=== PATIENT | male | born 1965 | race Caucasian/White ===

== ENCOUNTER 2021-08-18 13:48 | Inpatient (IN) | payer OTHER, SELFPAY ==
[2021-08-18] VITALS (32 sets, daily range): BP systolic 74–114; BP diastolic 46–77; PULSE 75–135; RESP 13–27; TEMP 36.4; O2SAT 88–100; BMI 25.9
[2021-08-18 14:25] LABS: Glucose Point of Care 154 mg/dL (70-110)
--- NOTE | 2021-08-18 14:29 | W.ED.GENADLT ---
HPI - General Adult General: Chief complaint: ER Hold Stated complaint: UNEXPLAINED WEIGHT LOSS,SINUS INFECTION,FEELS ILL Time Seen by Provider: 08/18/21 14:31 History of Present Illness: HPI narrative: 56-year-old male presents emergency room complaining of sinus infection he says for last 3 weeks he has had significant weight loss. He has been on Bactrim DS for the this. He states he generally not felt well had some vague abdominal discomfort denies any hematochezia melena hematemesis but has had some vomiting. Denies dysuria urgency or frequency has been mildly short of breath at times as well. Patient is also noticed decrease in urine output as well as unexplained weight loss. Patient also complaining of some shortness of breath and nonproductive cough. Onset (ago): week(s) Location: head, chest and abdomen Radiation: non-radiation Severity: mild Quality: aching Pain Consistency: constant Relieving factors: none Exacerbating factors: other (Exertion) Associated symptoms: Reports cough, decreased appetite, dyspnea, malaise, nausea and palpitations; Deny chest pain, confusion, diaphoresis, fevers/chills, headache(s), rash, seizures, short of breath, syncope, vomiting or weakness Treatments prior to arrival: none Review of Systems Const: Reports: malaise; Denies: diaphoresis ENMT: Denies: throat pain, ear or mastoid pain, nasal discharge or nasal congestion Card: Reports: palpitations; Denies: chest pain or syncope Resp: Reports: dyspnea GI: Reports: nausea; Denies: vomiting : Denies: flank pain, dysuria, urinary frequency or urinary urgency Skin/Breast: Denies: rash Neuro: Denies: headache(s) or confusion PFSH ED PFSH: Medical History (Updated 08/28/21 @ 13:38 by Haim Espinoza DO) HTN (hypertension) Surgical History (Updated 08/18/21 @ 20:41 by Jose De Jesus Miner MD) History of back surgery Family History Other Cancer Social History Smoking and tobacco status: former smoker Alcohol intake: current Alcohol intake frequency: holidays/special occasions only Lives independently: Yes Household members: none Marital status: Single Current occupational status: employed Physical Exam Const: COMMON NORMALS: no acute distress GENERAL APPEARANCE: cooperative and comfortable ORIENTATION/CONSCIOUSNESS: Yes awake, Yes oriented to person, Yes oriented to place and Yes oriented to time HENMT: COMMON NORMALS: normocephalic, atraumatic, hearing grossly normal bilaterally, external ears normal, EAC's normal, TM's normal bilaterally, Normal nasal mucous membranes and turbinates present, moist oral mucous membranes and oropharynx normal HEAD & SCALP: normocephalic and atraumatic NOSE: Normal nasal mucous membranes and turbinates present EXTERNAL EAR: Yes external ears normal EXTERNAL AUDITORY CANAL: EAC's normal TYMPANIC MEMBRANE: TM's normal bilaterally Eye: COMMON NORMALS: Equal, round and reactive pupils present, EOMs intact bilaterally, conjunctivae normal and no scleral icterus CONJUNCTIVA: Yes conjunctivae normal PUPIL: Yes Equal, round and reactive pupils present Neck/C-Spine: COMMON NORMALS: full ROM, no lymphadenopathy, supple and no JVD Lymph: LYMPHATIC: no lymphadenopathy noted and no lymphedema noted Resp: COMMON NORMALS: normal respiratory effort, No retractions, No use of accessory muscles and clear to auscultation bilaterally AUSCULTATION: clear to auscultation bilaterally Cardio: COMMON NORMALS: no JVD, regular rate, regular rhythm and No murmurs present (Cardio) RATE: regular rate RHYTHM: regular rhythm GI: COMMON NORMALS: No hepatosplenomegaly present AUSCULTATION: Yes normoactive bowel sounds PALPATION: Yes Tenderness to palpation present (GI) Details: RUQ, No Guarding due to palpation present (GI) and Yes No hepatosplenomegaly present Extremity: COMMON NORMALS: normal to inspection, capillary refill normal, no clubbing, cyanosis or edema, no calf tenderness and no pedal edema Neuro: SENSORIUM/ORIENTATION: Yes oriented to person, Yes oriented to place and Yes oriented to time Skin: COMMON NORMALS: no rashes or lesions noted GENERAL SKIN EXAM: no rashes or lesions noted Course Vital Signs: Vital signs: Vital Signs Temperature 97.4 F L 08/27/21 15:27 Pulse Rate 88 08/27/21 15:27 Respiratory Rate 16 08/27/21 15:27 Blood Pressure 143/96 08/27/21 15:27 Pulse Oximetry 94 08/27/21 15:27 MDM - General Adult MDM Narrative: Medical decision making narrative: Labs and imaging reviewed on the patient. He is mildly hypoxic and is requiring oxygen. He does seem to have an atypical pneumonia on chest x-ray. Additionally he has markedly elevated LFTs. Acute hepatitis panel shows acute hepatitis A. Discussed Dr. Miner will go ahead and admit for atypical pneumonia hepatitis A. Orders written. Lab Data: Labs: Lab Results 08/18/21 08/18/21 08/18/21 14:21 14:40 14:40 WBC 8.7 10^3/uL 10^3/ uL (4.0-10.0) RBC 5.42 10^6/uL H 10 ^6/uL (4.1-5.3) Hgb 15.9 g/dL g/dL (11.7-16.6) Hct 48.4 % % (42.0-52.0) MCV 89.3 fl fl (80-94) MCH 29.3 pg pg (28.0-34.0) MCHC 32.9 g/dL g/dL (30.0-36.0) RDW 12.4 % % (12.1-15.1) Plt Count 404 10^3/cmm H 10 ^3/cmm (130-400) MPV 10.1 fL fL (7.4-10.4) Neut % (Auto) 67.1 % % Lymph % (Auto) 19.4 % % [place] % (Auto) 9.3 % % Eos % (Auto) 3.0 % % Baso % (Auto) 0.5 % % Neut # (Auto) 5.86 10^3/uL 10^3 /uL (1.8-7.7) Lymph # (Auto) 1.7 10^3/uL 10^3/ uL (0.8-4.8) [place] # (Auto) 0.8 10^3/uL 10^3/ uL (0.2-0.9) Eos # (Auto) 0.3 10^3/uL 10^3/ uL (0.0-0.8) Baso # (Auto) 0.0 10^3/uL 10^3/ uL (0.0-0.1) Nucleated RBC % (a uto) 0 % % Nucleated RBCs # 0.0 /100WBC /100W BC PT INR APTT D-Dimer Specimen Type Sample Site ABG pH ABG pCO2 ABG pO2 ABG HCO3 ABG O2 Saturation ABG Base Excess Igor Test A-a O2 Gradient Hematocrit Hgb O2 Saturation Carboxyhemoglobin Methemoglobin Total Hemoglobin Ionized Calcium O2 Delivery Device O2 Liters/Min FiO2 Sleeve Setter Safety Stitch ID Sodium 140 mmol/L mmol/L (136-145) Potassium 3.9 mmol/L mmol/L (3.5-5.1) Chloride 103 mmol/L mmol/L (98-107) Carbon Dioxide 23 mmol/L mmol/L (22-29) Anion Gap 17.9 (5-19) BUN 68 mg/dL H mg/dL (6-20) Creatinine 3.0 mg/dL H mg/dL (0.7-1.2) GFR Calculation 21.9 mL/min L mL/ min (90-130) Glucose 117 mg/dL H mg/dL (65-115) POC Glucose 154 mg/dL H mg/dL (70-110) Calculated Osmolal ity 311 mOsm/kg H mOs m/kg (285-295) Lactate Calcium 9.3 mg/dL mg/dL (8.5-10.5) Total Bilirubin 1.0 mg/dL mg/dL (0.15-1.2) AST 55 U/L H U/L (0-40) ALT 63 U/L H U/L (0-41) Alkaline Phosphata se 62 IU/L IU/L (40-130) Total Protein 7.1 g/dL g/dL (6.6-8.7) Albumin 3.7 g/dL g/dL (3.5-5.2) Globulin 3.4 g/dL g/dL (1.3-4.6) TSH Free T4 Nasal/Oral COVID-1 9 PCR Hepatitis A IgM Ab Hep Bs Antigen Hep B Core IgM Ab Hepatitis C Antibo dy HIV 1&2 Ab & HIV 1 Ag HIV 1&2 Antibody SARS-CoV-2 Ag (Rap id) 08/18/21 08/18/21 08/18/21 14:40 14:40 14:40 WBC RBC Hgb Hct MCV MCH MCHC RDW Plt Count MPV Neut % (Auto) Lymph % (Auto) [place] % (Auto) Eos % (Auto) Baso % (Auto) Neut # (Auto) Lymph # (Auto) [place] # (Auto) Eos # (Auto) Baso # (Auto) Nucleated RBC % (a uto) Nucleated RBCs # PT 16.20 SECONDS H S ECONDS (12.1-14.9) INR 1.27 H (0.8-1.2) APTT 28.4 SECONDS SECO NDS (23.9-36.7) D-Dimer Specimen Type Sample Site ABG pH ABG pCO2 ABG pO2 ABG HCO3 ABG O2 Saturation ABG Base Excess Igor Test A-a O2 Gradient Hematocrit Hgb O2 Saturation Carboxyhemoglobin Methemoglobin Total Hemoglobin Ionized Calcium O2 Delivery Device O2 Liters/Min FiO2 Sleeve Setter Safety Stitch ID Sodium Potassium Chloride Carbon Dioxide Anion Gap BUN Creatinine GFR Calculation Glucose POC Glucose Calculated Osmolal ity Lactate 2.5 mmol/L H mmol /L (0.5-2.2) Calcium Total Bilirubin AST ALT Alkaline Phosphata se Total Protein Albumin Globulin TSH Free T4 Nasal/Oral COVID-1 9 PCR Hepatitis A IgM Ab Reactive H (Nonreactive) Hep Bs Antigen Non-reactive (Nonreactive) Hep B Core IgM Ab Non-reactive (Nonreactive) Hepatitis C Antibo dy Non-reactive (Nonreactive) HIV 1&2 Ab & HIV 1 Ag HIV 1&2 Antibody SARS-CoV-2 Ag (Rap id) 08/18/21 08/18/21 08/18/21 14:40 14:40 14:40 WBC RBC Hgb Hct MCV MCH MCHC RDW Plt Count MPV Neut % (Auto) Lymph % (Auto) [place] % (Auto) Eos % (Auto) Baso % (Auto) Neut # (Auto) Lymph # (Auto) [place] # (Auto) Eos # (Auto) Baso # (Auto) Nucleated RBC % (a uto) Nucleated RBCs # PT INR APTT D-Dimer 1.54 ug/mIFEU H u g/mIFEU (0-0.59) Specimen Type Sample Site ABG pH ABG pCO2 ABG pO2 ABG HCO3 ABG O2 Saturation ABG Base Excess Igor Test A-a O2 Gradient Hematocrit Hgb O2 Saturation Carboxyhemoglobin Methemoglobin Total Hemoglobin Ionized Calcium O2 Delivery Device O2 Liters/Min FiO2 Sleeve Setter Safety Stitch ID Sodium Potassium Chloride Carbon Dioxide Anion Gap BUN Creatinine GFR Calculation Glucose POC Glucose Calculated Osmolal ity Lactate Calcium Total Bilirubin AST ALT Alkaline Phosphata se Total Protein Albumin Globulin TSH 1.70 uIU/mL uIU/m L (0.27-4.20) Free T4 1.05 ng/dL ng/dL (0.82-1.77) Nasal/Oral COVID-1 9 PCR Hepatitis A IgM Ab Hep Bs Antigen Hep B Core IgM Ab Hepatitis C Antibo dy HIV 1&2 Ab & HIV 1 Ag Non-reactive (Non-Reactiv) HIV 1&2 Antibody Non-reactive (Non-Reactiv) SARS-CoV-2 Ag (Rap id) 08/18/21 08/18/21 08/18/21 15:01 15:53 17:14 WBC RBC Hgb Hct MCV MCH MCHC RDW Plt Count MPV Neut % (Auto) Lymph % (Auto) [place] % (Auto) Eos % (Auto) Baso % (Auto) Neut # (Auto) Lymph # (Auto) [place] # (Auto) Eos # (Auto) Baso # (Auto) Nucleated RBC % (a uto) Nucleated RBCs # PT INR APTT D-Dimer Specimen Type Arterial Sample Site Brachial, left ABG pH 7.44 (7.35-7.45) ABG pCO2 30.2 mmHg L mmHg (35-45) ABG pO2 68.0 mmHg L mmHg (80.0-100.0) ABG HCO3 20.3 mmol/L L mmo l/L (22-26) ABG O2 Saturation 92.5 ABG Base Excess -2.8 mmol/L L mmo l/L (-2.0-2.0) Igor Test N/a A-a O2 Gradient 23.1 mmHg H mmHg (5-10) Hematocrit 46.0 % % (42-52) Hgb O2 Saturation 90.8 % L % (95-100) Carboxyhemoglobin 0.9 %THgb %THgb (0.4-20.1) Methemoglobin 0.9 % % (0.4-1.5) Total Hemoglobin 15.0 g/dL g/dL (14-18) Ionized Calcium 1.2 mmol/L mmol/L (1.1-1.4) O2 Delivery Device Nc O2 Liters/Min 5.0 % % FiO2 40.0 % % Sleeve Setter Safety Stitch ID Ed Sodium 142.0 mmol/L mmol /L (131-143) Potassium 3.7 mmol/L mmol/L (3.5-5.0) Chloride Carbon Dioxide Anion Gap BUN Creatinine GFR Calculation Glucose 96.0 mg/dL mg/dL (70-115) POC Glucose Calculated Osmolal ity Lactate Calcium Total Bilirubin AST ALT Alkaline Phosphata se Total Protein Albumin Globulin TSH Free T4 Nasal/Oral COVID-1 9 PCR Detected H Hepatitis A IgM Ab Hep Bs Antigen Hep B Core IgM Ab Hepatitis C Antibo dy HIV 1&2 Ab & HIV 1 Ag HIV 1&2 Antibody SARS-CoV-2 Ag (Rap id) Negative (Negative) Discharge Plan Discharge Patient Disposition: Admitted As Inpatient Admit Provider: Jose De Jesus Miner Clinical Impression: Pneumonia, Acute hepatitis A, Acute kidney injury Condition: Stable Discharge Diet: Cardiac Discharge Activity: Increase activity as tolerated Coding Level of Care Code ED Range Aide for Haley Hedrick
[2021-08-18] MEDS: sodium chloride 0.9% 1,000 ML 999 ML IV ×4 (14:58→17:51)
[2021-08-18 15:09] LABS: Basophils % 0.5 %; Eosinophils # 0.3 10^3/uL (0.0-0.8); Hematocrit 48.4 % (42.0-52.0); Hemoglobin 15.9 g/dL (11.7-16.6); Lymphocytes # 1.7 10^3/uL (0.8-4.8); Lymphocytes % 19.4 %; Mean Corpuscular HGB Conc 32.9 g/dL (30.0-36.0); Mean Corpuscular Hemoglobin 29.3 pg (28.0-34.0); Mean Corpuscular Volume 89.3 fl (80-94); Mean Platelet Volume 10.1 fL (7.4-10.4); Monocytes # 0.8 10^3/uL (0.2-0.9); Monocytes % 9.3 %; Neutrophils # 5.86 10^3/uL (1.8-7.7); Neutrophils % 67.1 %; Nucleated Red Blood Cells % 0 %; Platelet Count 404 10^3/cmm (130-400); Red Blood Count 5.42 10^6/uL (4.1-5.3); Red Cell Distribution Width 12.4 % (12.1-15.1); White Blood Count 8.7 10^3/uL (4.0-10.0)
[2021-08-18 15:11] LABS: INR 1.27 (0.8-1.2)
[2021-08-18 15:12] LABS: Partial Thromboplastin Time 28.4 SECONDS (23.9-36.7)
[2021-08-18 15:16] LABS: Alanine Aminotransferase 63 U/L (0-41); Albumin Level 3.7 g/dL (3.5-5.2); Alkaline Phosphatase 62 IU/L (40-130); Anion Gap 17.9 (5-19); Aspartate Amino Transferase 55 U/L (0-40); Blood Urea Nitrogen 68 mg/dL (6-20); Calcium 9.3 mg/dL (8.5-10.5); Carbon Dioxide 23 mmol/L (22-29); Chloride 103 mmol/L (98-107); Globulin 3.4 g/dL (1.3-4.6); Glomerular Filtration Rate 21.9 mL/min (90-130); Glucose 117 mg/dL (65-115); Osmolality Calculated 311 mOsm/kg (285-295); Potassium 3.9 mmol/L (3.5-5.1); Sodium 140 mmol/L (136-145); Total Protein 7.1 g/dL (6.6-8.7)
[2021-08-18 15:24] LABS: Lactate (Lactic Acid level) 2.5 mmol/L (0.5-2.2)
[2021-08-18 15:37] LABS: SARS Covid-2 Antigen Negative (Negative)
--- NOTE | 2021-08-18 15:40 | XR_ITS ---
WS: [id number] Exam: XR chest 1V portable [id number] Date/Time of Exam: 08/18/2021 3:40 PM Reason For Exam: dyspnea/cough No prior exams. Patchy groundglass infiltrates are noted in the bilateral lateral lung zones. Heart size is normal. T he mediastinum is not widened. The lungs are fully expanded. No pleural effusions. Regional bony stru ctures are intact. XR/XR chest 1V portable [id number] IMPRESSION: 1. Patchy groundglass infiltrates noted in both lateral lung zones most marked on the right. There are no prior exams to determine the chronicity of this find ing. This could represent chronic change or active pneumonia. This pattern can be seen with Covid pneumonia.
--- NOTE | 2021-08-18 15:40 | CTR_ITS ---
PROCEDURE INFORMATION: Exam: CT Abdomen And Pelvis Without Contrast Exam date and time: 08/18/2021 3:40 PM Age: 56 years old Clinical indication: Weakness. Rapid weight loss. Abdominal pain. TECHNIQUE: Imaging protocol: Computed tomography of the abdomen and pelvis without contrast. Radiation optimization: All CT scans at this facility use at least one of these dose optimization techniques: automated exposure control; mA and/or kV adjustment per patient size (includes targeted exams where dose is matched to clinical indication); or iterative reconstruction. COMPARISON: CR XR chest 1V portable [id number] 08/18/2021 3:45 PM RADIATION DOSE METRICS: Total DLP (mGy-cm): 1581.96 FINDINGS: Lungs: There are patchy ground-glass opacities at the lung bases. These findings are commonly reported imaging features of COVID 19 pneumonia. Other processes such as influenza pneumonia and organizing pneumonia (as can be seen with drug toxicity and connective tissue disease) can cause a similar imaging pattern. Heart: No pericardial effusion. No hiatal hernia. Liver: The liver is mildly enlarged measuring 17.3 cm. A simple hepatic cyst measures 0.6 cm. Gallbladder and bile ducts: Possible gallbladder sludge. No definite stone. Pancreas: The pancreas is unremarkable. Spleen: The spleen is unremarkable. Adrenal glands: The adrenal glands are unremarkable. Kidneys and ureters: Small cyst on the left measuring 1.4 cm with a tiny peripheral calcification. There is a dense left renal lesion measuring 0.9 cm. No hydronephrosis. Stomach and bowel: The stomach and small bowel are unremarkable.. The colon is unremarkable. Appendix: The appendix is unremarkable. Intraperitoneal space: No free intraperitoneal air is seen. Vasculature: No abdominal aortic aneurysm. Lymph nodes: A periportal lymph node measures 1.7 x 1.9 cm. Urinary bladder: The bladder is unremarkable. Reproductive: The prostate measures 3.4 x 3.5 cm. Bones/joints: No acute fracture is seen. Soft tissues: Small fat containing umbilical hernia. CT/CT abdomen pelvis wo con [id number] IMPRESSION: 1. There are patchy ground-glass opacities at the lung bases. These findings are commonly reported imaging features of COVID 19 pneumonia. Other processes such as influenza pneumonia and organizing pneumonia (as can be seen with drug toxicity and connective tissue disease) can cause a similar imaging pattern. 2. Small dense left renal lesion likely representing a hemorrhagic cyst. Probable simple cyst in the left kidney with tiny peripheral calcification. Recommend nonemergent ultrasound to exclude a solid renal lesion. 3. Possible gallbladder sludge. No definite gallbladder stone. No gallbladder wall thickening is appreciated. 4. Mild hepatomegaly with periportal lymphadenopathy. COMMENTS: Consistent with the [employer]'s Incidental Findings Committee white paper (J Am Anthony Radiol 2018): Any incidental renal lesion less than 1 cm or classified as too small to characterize, or any incidental cystic renal lesion characterized as simple-appearing, is likely benign. No follow-up imaging is recommended for these lesions per consensus recommendations based on imaging criteria. Radiation Dose CTDIVOL = (mGy): DLP = 1581.96 (mGy-cm)
[2021-08-18 16:03] LABS: ABG PCO2 30.2 mmHg (35-45); ABG PH Result 7.44 (7.35-7.45); Base Excess ABG -2.8 mmol/L (-2.0-2.0); Blood Gas Sample Type Arterial; Carboxyhemoglobin 0.9 %THgb (0.4-20.1); HCO3 ABG 20.3 mmol/L (22-26); HGB O2 Sat 90.8 % (95-100); Ionized Calcium Level - ABG 1.2 mmol/L (1.1-1.4); Methemoglobin 0.9 % (0.4-1.5); Oxygen Saturation ABG 92.5; Potassium Level - ABG 3.7 mmol/L (3.5-5.0)
[2021-08-18 16:04] LABS: Alveolar-Arterial Oxygen Gradi 23.1 mmHg (5-10); Blood Gas Operator Identificat ED; Blood Gas Sample Site Brachial, left; Oxygen Device NC
[2021-08-18 16:12] LABS: HIV 1 & 2 Antibody Non-Reactive (Non-Reactiv); HIV 1 & 2 Antigen Non-Reactive (Non-Reactiv)
[2021-08-18 16:15] LABS: Hepatitis A Antibody IgM Reactive (Nonreactive); Hepatitis B Core IgM Non-Reactive (Nonreactive); Hepatitis C Virus Antibody Non-Reactive (Nonreactive)
[2021-08-18 16:16] LABS: Free T4 Free Thyroxine 1.05 ng/dL (0.82-1.77)
[2021-08-18 18:00] LABS: D Dimer 1.54 ug/mIFEU (0-0.59)
[2021-08-18 20:36] LABS: Hepatitis B Surface Antigen Non-Reactive (Nonreactive)
--- NOTE | 2021-08-18 20:37 | PM.HP ---
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 In ER he is noted with mild hypoxia, initially 88%, requiring 3 L nasal cannula oxygen, not normally needing oxygen without history of lung disease, although is a former smoker. Chest x-ray with noted patchy groundglass infiltrates in both lateral lung zones, most marked on the right, unknown chronicity, could represent COVID-19. He has not been vaccinated. Rapid COVID-19 antigen negative, PCR requested and pending. With noted transaminitis, AST, ALT 55 and 63 respectively. Acute hepatitis panel obtained and is positive for hepatitis A IgM antibody. He denies any drug use. States he is not sexually active. [facility] occasionally gets takeout food a few local places. 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 [facility] he has recently had symptoms of upper respiratory infection for which he tried to contact [facility], but was told to proceed to local primary provider and after negative rapid Covid test on assessment was prescribed course of Bactrim which she has been taking up until last day yesterday. In ER he was noted hypotensive, systolic blood pressures initially in the 70s, received 3 L of fluid boluses. He states he has been having very poor oral intake recently, but [facility] was adherent with taking his lisinopril. In case unable to make his own decisions, names his parents as next of kin/surrogate decision-makers. Review of Systems Const: Denies: fever(s), chills, body aches or malaise Eyes: Denies: change in vision or eye redness ENMT: Denies: throat pain, oral sores or ear or mastoid pain Card: Denies: chest pain, edema, pre-syncope or dyspnea on exertion Resp: Denies: dyspnea, productive cough, change in phlegm color or hemoptysis GI: Denies: abdominal pain, nausea, vomiting, diarrhea, constipation, hematochezia or melena : Denies: flank pain, difficulty urinating, urinary frequency or hematuria Musc: Denies: back pain, joint swelling or joint redness Skin/Breast: Denies: rash, sores or new lesions Neuro: Denies: headache(s), numbness in extremities, weakness in extremities, dizziness, confusion or seizure-like activity Endo: Denies: polyuria or polydipsia Stephon/Lymph: Denies: easy bleeding or purpura All/Imm: Denies: urticaria, throat swelling or tongue swelling Medications/Allergies Home Medications Medication Instructions Recorded Confirmed Last Taken Type lisinopril 10 mg PO QAM 08/18/21 08/18/21 08/18/21 06:30 History sulfamethoxazole-trimethoprim 1 tab PO BID 08/18/21 08/18/21 08/18/21 06:30 History [Bactrim DS] Allergies Allergy/AdvReac Type Severity Reaction Status Date / Time No Known Allergies Allergy Verified 08/18/21 15:13 PFSH Acute PFSH: Medical History (Updated 08/18/21 @ 20:43 by Jose De Jesus Miner MD) HTN (hypertension) Surgical History (Updated 08/18/21 @ 20:41 by Jose De Jesus Miner MD) History of back surgery Family History Other Cancer Social History Smoking and tobacco status: former smoker Alcohol intake: current Alcohol intake frequency: holidays/special occasions only Substance/Drug Use: never Lives independently: Yes Household members: none Marital status: Single Current occupational status: employed Vitals/I&O/Wt Last Vital Signs Temp 97.5 F L 08/18/21 14:03 Pulse 85 08/18/21 17:10 Resp 18 08/18/21 17:10 BP 114/76 08/18/21 17:10 Pulse Ox 99 08/18/21 17:10 08/18/21 08/18/21 08/18/21 06:59 14:59 22:59 Intake Total 1999 Balance 1999 Weight last 48 hrs Weight 84.368 kg Physical Exam Const: COMMON NORMALS: no acute distress, patient oriented x3 and alert GENERAL APPEARANCE: cooperative ORIENTATION/CONSCIOUSNESS: Yes awake OTHER: Uncomfortable from mucosal dryness. Reports feeling very tired. 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 HENMT: COMMON NORMALS: oropharynx normal Neck/C-Spine: COMMON NORMALS: no JVD Resp: COMMON NORMALS: normal respiratory effort and clear to auscultation bilaterally AUSCULTATION: clear to auscultation bilaterally Cardio: COMMON NORMALS: no JVD, regular rhythm, S1 normal heart sound present, S2 normal heart sound present and No murmurs present (Cardio) RHYTHM: regular rhythm HEART SOUNDS: S1 normal heart sound present and S2 normal heart sound present GI: COMMON NORMALS: Normal to inspection, nondistended, normoactive bowel sounds present, Soft to palpation and non-tender PALPATION: Yes Soft to palpation Extremity: COMMON NORMALS: no joint enlargement and no pedal edema Neuro: COMMON NORMALS: patient oriented x3 and moves all extremities Skin: COMMON NORMALS: no rashes or lesions noted GENERAL SKIN EXAM: no rashes or lesions noted Data : 08/18/21 14:40 08/18/21 14:40 Micro: Microbiology 08/18/21 14:40 Blood Culture - Preliminary Blood SPECIMEN COLLECTED 08/18/21 14:40 Blood Culture - Preliminary Blood SPECIMEN COLLECTED A&P Assessment and plan (1) Atypical pneumonia: GG opacities. Discussed with him possible pneumonia, possibly viral etiology. Possible COVID-19. PCR pending. Rapid negative. Discussed consideration of empiric treatment currently, however, with concern of acute hepatitis A infection also, he as per discussion prefers to wait for PCR results. Depending on his condition consideration may be given to avoiding steroids due to immune suppression in setting of acute hepatitis A. may have to avoid remdesivir as well in the setting of acute renal failure, hepatitis. With coryza. He is otherwise afebrile, without leukocytosis, without cough/phlegm production, without sign of bacterial infection. For now hold off on initiation of antibiotic. Supplemental oxygen. Monitor closely. D-dimer elevation, transaminitis would fit also with COVID-19 infection. Currently unable to obtain CT angiogram or complete VQ scan. With D-dimer elevation for now initiate empiric anticoagulation until can rule out PE. Status: Acute (2) Hypoxia: As above. Status: Acute (3) Acute hepatitis A: Unclear source, claims possibly from sewage overflowing in his house. States gets takeout from a few local places. Denies any drug use. States is not sexually active. Follow-up liver function. Hold off any further Bactrim. Monitor blood pressures, avoid hypotension. Follow-up coagulation studies. Status: Acute (4) Hypotension: Received multiple fluid boluses in ER. Blood pressure is improved. Holding so far. Poor oral intake recently, and states continue taking lisinopril, also in the setting of acute kidney injury. Hold further antihypertensives. Status: Acute (5) Acute kidney injury: Suspected prerenal, possibly ATN, poor urine output recently, but has put out some urine after fluid challenges in ER. Possible contribution from Bactrim, lisinopril. Hold lisinopril, discontinue Bactrim. Monitor I&O. Reassess renal function. Status: Acute Attestations Medical Necessity Statement*: Admission of over 2 midnights is going be needed for assessment of management of new hypoxia with suspected acute COVID-19 infection in the setting also of acute hepatitis A, BRITNEY, initial hypotension at presentation. Coding Level of Care Code Acute [employer] And [employer]pos[employer] Inspector for [facility] Fwd Diagnoses Atypical pneumonia J18.9 Hypoxia R09.02 Acute hepatitis A B15.9 Hypotension I95.9 Acute kidney injury N17.9
[2021-08-18 20:39] LABS: Add Urine Microscopic? NO; Charge for UA Resulting for Rev
[2021-08-18 20:46] LABS: Bilirubin Urine Neg (Negative); Blood Urine Neg (Negative); Glucose Urine UA Norm (Normal); Ketones Urine Negative (Negative); Leukocyte Esterase Urine Negative (Negative); Nitrate Urine Negative (Negative); Protein Urine Neg (Negative); Specific Gravity, Urine 1.015 (1.005-1.030); Urine Appearance Clear (CLEAR); Urine Color Yellow (Yellow); Urobilinogen Urine 1 mg/dL (Negative); pH Urine 5 (5-7)
[2021-08-18] MEDS: enoxaparin 80 mg/0.8 mL Syringe SUBCUT (22:42)
[2021-08-18] MEDS: sodium chloride 0.9% 1,000 ML 100 ML IV (22:44)
[2021-08-19] VITALS (10 sets, daily range): BP systolic 113–125; BP diastolic 76–83; PULSE 54–107; RESP 16–18; TEMP 36.3–36.9; O2SAT 90–95; BMI 27.6
--- NOTE | 2021-08-19 04:17 | PC.NURSE ---
Patient IV replaced This nurse responded to patient's call light at 0340. Patient reported that his IV was leaking . Patient's IV line had become tangled within his cardiac leads while the patient was resting and had been pulled out. This nurse removed the veneguard and bandaged the patient's arm. IV fluids were paused at the pump. This nurse attempted 2 IVs in patient's left AC with 18g catheter with no result. ED nurse Therese-EDMUNDO placed a 22g in patient's left hand. IV fluids resumed at 0410. Patient resting with lights dimmed, x2 bed rails up, with call light and bedside table within reach.
[2021-08-19 06:52] LABS: Basophils % 0.5 %; Eosinophils # 0.2 10^3/uL (0.0-0.8); Eosinophils % 3.7 %; Hematocrit 42.1 % (42.0-52.0); Hemoglobin 13.4 g/dL (11.7-16.6); Lymphocytes % 34.2 %; Mean Corpuscular HGB Conc 31.8 g/dL (30.0-36.0); Mean Corpuscular Hemoglobin 28.8 pg (28.0-34.0); Mean Corpuscular Volume 90.5 fl (80-94); Mean Platelet Volume 9.7 fL (7.4-10.4); Monocytes # 0.6 10^3/uL (0.2-0.9); Monocytes % 9.9 %; Neutrophils % 50.4 %; Nucleated Red Blood Cells % 0 %; Platelet Count 268 10^3/cmm (130-400); Red Blood Count 4.65 10^6/uL (4.1-5.3); Red Cell Distribution Width 12.6 % (12.1-15.1)
[2021-08-19 07:03] LABS: INR 1.31 (0.8-1.2)
[2021-08-19 07:19] LABS: Alanine Aminotransferase 56 U/L (0-41); Alkaline Phosphatase 59 IU/L (40-130); Aspartate Amino Transferase 43 U/L (0-40); Blood Urea Nitrogen 46 mg/dL (6-20); Calcium 8.2 mg/dL (8.5-10.5); Carbon Dioxide 22 mmol/L (22-29); Chloride 109 mmol/L (98-107); Globulin 3.1 g/dL (1.3-4.6); Glomerular Filtration Rate 42.2 mL/min (90-130); Glucose 94 mg/dL (65-115); Osmolality Calculated 296 mOsm/kg (285-295); Sodium 137 mmol/L (136-145); Total Bilirubin 0.6 mg/dL (0.15-1.2); Total Protein 6.1 g/dL (6.6-8.7)
[2021-08-19] MEDS: pantoprazole DR 40 mg Tablet PO (09:08)
[2021-08-19] MEDS: enoxaparin 80 mg/0.8 mL Syringe SUBCUT ×2 (10:18→21:46)
[2021-08-19] MEDS: sodium chloride 0.9% 1,000 ML 100 ML IV (10:18)
--- NOTE | 2021-08-19 12:10 | PC.NURSE ---
Pt stated he does not wear Oxygen and does not currently have SOA. Pt has 4L NC oxygen on. Removed and placed pt on RA, immediate drop to 89% with no SOA. Placed 1L NC no change, then placed 2L NC, 90% noted with no SOA.
--- NOTE | 2021-08-19 12:27 | P.PN_ITS ---
Subjective Subjective: Interval history: He states overall is doing better today. He is eating, has had a bowel movement. Urinating. Breathing little bit better, denies chest pain or pressure. No headache. Vitals/I&O/Wt Last Vital Signs Temp 97.5 F L 08/18/21 14:03 Pulse 71 08/19/21 02:26 Resp 17 08/19/21 02:26 BP 123/83 08/19/21 02:26 Pulse Ox 90 08/19/21 02:26 08/18/21 08/19/21 08/19/21 22:59 06:59 14:59 Intake Total 1999 1000 / 1000 Balance 1999 1000 / 1000 Weight last 48 hrs Weight 84.368 kg Physical Exam Const: COMMON NORMALS: no acute distress, patient oriented x3 and alert GENERAL APPEARANCE: cooperative ORIENTATION/CONSCIOUSNESS: Yes awake OTHER: More comfortable. Reports feeling very tired. HENMT: COMMON NORMALS: oropharynx normal Neck/C-Spine: COMMON NORMALS: no JVD Resp: COMMON NORMALS: normal respiratory effort and clear to auscultation bilaterally AUSCULTATION: clear to auscultation bilaterally Cardio: COMMON NORMALS: no JVD, regular rhythm, S1 normal heart sound present, S2 normal heart sound present and No murmurs present (Cardio) RHYTHM: regular rhythm HEART SOUNDS: S1 normal heart sound present and S2 normal heart sound present GI: COMMON NORMALS: Normal to inspection, nondistended, normoactive bowel sounds present, Soft to palpation and non-tender PALPATION: Yes Soft to palpation Extremity: COMMON NORMALS: no joint enlargement and no pedal edema Neuro: COMMON NORMALS: patient oriented x3 and moves all extremities SENSORIUM/ORIENTATION: Yes alert Skin: COMMON NORMALS: no rashes or lesions noted GENERAL SKIN EXAM: no rashes or lesions noted Data : 08/19/21 06:33 08/19/21 06:33 Micro: Microbiology 08/18/21 14:40 Blood Culture - Preliminary Blood SPECIMEN COLLECTED 08/18/21 14:40 Blood Culture - Preliminary Blood SPECIMEN COLLECTED A&P Assessment and plan (1) Atypical pneumonia: Pending COVID-19 PCR. Saturations in low 90s on 3 L nasal cannula. Not usually requiring oxygen. Afebrile, without leukocytosis. Holding off on antibiotics for now due to suspected viral etiology of pneumonia. GG opacities. With coryza. He is otherwise afebrile, without leukocytosis, without cough/phlegm production, without sign of bacterial infection. Supplemental oxygen. Monitor closely. D-dimer elevation, transaminitis would fit also with COVID-19 infection. Mina rios unable to obtain CT angiogram or complete VQ scan. With D-dimer elevation discussed with him for now empiric anticoagulation until can rule out PE. Status: Acute (2) Hypoxia: As above. Status: Acute (3) Acute hepatitis A: Transaminitis with mild improvement today. It may be that he is on the tail end of the infection. Unclear source, claims possibly from sewage overflowing in his house. States gets takeout from a few local places. Denies any drug use. States is not sexually active. Follow-up liver function. Hold off any further Bactrim. Avoid NSAIDs. Monitor blood pressures, avoid hypotension. Follow-up coagulation studies. Status: Acute (4) Hypotension: Resolved. Continue to hold lisinopril. Received multiple fluid boluses on adamant. Poor oral intake recently, and states continue taking lisinopril, also in the setting of acute kidney injury. Hold further antihypertensives. Status: Acute (5) Acute kidney injury: Improving. Creatinine down to 1.7. Appears to responded well to fluid challenge. Producing urine. Continue supportive care. Monitor I&O. Hold lisinopril. Discontinue Bactrim. Avoid NSAIDs. Suspected prerenal, possibly ATN, poor urine output recently, but has put out some urine after fluid challenges in ER. Possible contribution from Bactrim, lisinopril. Reassess renal function. Status: Acute Attestations Medical Necessity Statement*: Continue admission for assessment of new hypoxia with suspected viral pneumonia, possibly COVID-19, in the setting of acute hepatitis A infection. Monitoring of improving acute kidney injury initially oliguric. 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
--- NOTE | 2021-08-19 12:43 | PC.NURSE ---
Received report from EDMUNDO Dee. PT waiting for admission bed. at bedside no needs.
--- NOTE | 2021-08-19 13:41 | PC.NURSE ---
Attempt to call [phone] for report.
[2021-08-19] MEDS: cetirizine 10 mg Tablet PO (16:50)
[2021-08-19] MEDS: artificial tears Op Soln 15 mL Btl 1 DROP EYE-BOTH (17:08)
[2021-08-19 18:16] LABS: Coronavirus Test Green County Detected
[2021-08-20] VITALS (11 sets, daily range): BP systolic 95–119; BP diastolic 61–82; PULSE 64–88; RESP 16–18; TEMP 36.4–36.9; O2SAT 90–94
[2021-08-20 06:24] LABS: Basophils % 0.4 %; Eosinophils # 0.2 10^3/uL (0.0-0.8); Eosinophils % 2.6 %; Hematocrit 41.3 % (42.0-52.0); Hemoglobin 13.3 g/dL (11.7-16.6); Lymphocytes # 2.8 10^3/uL (0.8-4.8); Lymphocytes % 41.3 %; Mean Corpuscular HGB Conc 32.2 g/dL (30.0-36.0); Mean Corpuscular Hemoglobin 29.4 pg (28.0-34.0); Mean Corpuscular Volume 91.4 fl (80-94); Monocytes # 0.7 10^3/uL (0.2-0.9); Monocytes % 10.3 %; Neutrophils # 3.06 10^3/uL (1.8-7.7); Neutrophils % 44.7 %; Nucleated Red Blood Cells % 0 %; Platelet Count 248 10^3/cmm (130-400); Red Blood Count 4.52 10^6/uL (4.1-5.3); Red Cell Distribution Width 12.4 % (12.1-15.1); White Blood Count 6.9 10^3/uL (4.0-10.0)
[2021-08-20 06:51] LABS: Alanine Aminotransferase 61 U/L (0-41); Albumin Level 2.9 g/dL (3.5-5.2); Alkaline Phosphatase 98 IU/L (40-130); Anion Gap 12.2 (5-19); Aspartate Amino Transferase 43 U/L (0-40); Blood Urea Nitrogen 25 mg/dL (6-20); Calcium 8.6 mg/dL (8.5-10.5); Carbon Dioxide 20 mmol/L (22-29); Chloride 110 mmol/L (98-107); Glomerular Filtration Rate 69.8 mL/min (90-130); Glucose 89 mg/dL (65-115); Osmolality Calculated 290 mOsm/kg (285-295); Potassium 4.2 mmol/L (3.5-5.1); Sodium 138 mmol/L (136-145); Total Bilirubin 0.6 mg/dL (0.15-1.2); Total Protein 5.9 g/dL (6.6-8.7)
[2021-08-20] MEDS: pantoprazole DR 40 mg Tablet PO (09:38)
[2021-08-20] MEDS: enoxaparin 80 mg/0.8 mL Syringe SUBCUT ×2 (09:39→22:53)
[2021-08-20] MEDS: remdesivir 200 MG in sodium chloride 0.9% (100 ml) 60 ML 100 MG IV (13:23)
--- NOTE | 2021-08-20 21:40 | P.PN_ITS ---
Subjective Subjective: Interval history: She is overall doing okay. Intermittent cough. No severe cough bouts. Denies chest pain or pressure. No headache nausea vomiting or diarrhea. Vitals/I&O/Wt Last Vital Signs Temp 98.4 F 08/20/21 15:38 Pulse 71 08/20/21 15:38 Resp 18 08/20/21 15:38 BP 119/78 08/20/21 15:38 Pulse Ox 94 08/20/21 15:38 08/20/21 08/20/21 08/20/21 06:59 14:59 22:59 Intake Total 740 / 740 480 / 1220 Output Total 300 / 300 300 / 600 Balance 440 / 440 180 / 620 Weight last 48 hrs Weight 89.811 kg Physical Exam Const: COMMON NORMALS: no acute distress, patient oriented x3 and alert GENERAL APPEARANCE: cooperative ORIENTATION/CONSCIOUSNESS: Yes awake HENMT: COMMON NORMALS: oropharynx normal Neck/C-Spine: COMMON NORMALS: no JVD Resp: COMMON NORMALS: normal respiratory effort and clear to auscultation bilaterally AUSCULTATION: clear to auscultation bilaterally Cardio: COMMON NORMALS: no JVD, regular rhythm, S1 normal heart sound present, S2 normal heart sound present and No murmurs present (Cardio) RHYTHM: regular rhythm HEART SOUNDS: S1 normal heart sound present and S2 normal heart sound present GI: COMMON NORMALS: Normal to inspection, nondistended, normoactive bowel sounds present, Soft to palpation and non-tender PALPATION: Yes Soft to palpation Extremity: COMMON NORMALS: no joint enlargement and no pedal edema Neuro: COMMON NORMALS: patient oriented x3 and moves all extremities SENSORIUM/ORIENTATION: Yes alert Skin: COMMON NORMALS: no rashes or lesions noted GENERAL SKIN EXAM: no rashes or lesions noted Data : 08/20/21 06:05 08/20/21 06:05 A&P Assessment and plan (1) Atypical pneumonia: Discussed with him COVID-19 severe pneumonia. Remdesivir added. Discussed with him consideration of steroid, but given appears he is recovering from acute hepatitis A infection we are at the moment holding off steroid. Continue oxygen support. Follow-up D-dimer, CRP. D-dimer elevation, transaminitis would fit also with COVID-19 infection. Currently unable to obtain CT angiogram or complete VQ scan. With D-dimer elevation discussed with him for now empiric anticoagulation until can rule out PE. Status: Acute (2) Hypoxia: As above. Status: Acute (3) Acute hepatitis A: Transaminitis with mild improvement today. It may be that he is on the tail end of the infection. Unclear source, claims possibly from sewage overflowing in his house. States gets takeout from a few local places. Denies any drug use. States is not sexually active. Follow-up liver function. Hold off any further Bactrim. Avoid NSAIDs. Monitor blood pressures, avoid hypotension. Follow-up coagulation studies. Status: Acute (4) Hypotension: Resolved. Continue to hold lisinopril. Received multiple fluid boluses on adamant. Poor oral intake recently, and states continue taking lisinopril, also in the setting of acute kidney injury. Hold further antihypertensives. Status: Acute (5) Acute kidney injury: Resolving Appears to responded well to fluid challenge. Producing urine. Continue supp ortive care. Monitor I&O. Hold lisinopril. Discontinue Bactrim. Avoid NSAIDs. Suspected prerenal, possibly ATN, poor urine output recently, but has put out some urine after fluid challenges in ER. Possible contribution from Bactrim, lisinopril. Reassess renal function. Status: Acute Attestations Medical Necessity Statement*: Continue admission for assessment management of severe COVID-19 infection. 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
[2021-08-21] VITALS (11 sets, daily range): BP systolic 102–118; BP diastolic 70–86; PULSE 74–96; RESP 17–20; TEMP 36.3–36.9; O2SAT 90–99
[2021-08-21 06:22] LABS: Basophils % 0.6 %; Eosinophils # 0.2 10^3/uL (0.0-0.8); Eosinophils % 2.5 %; Hemoglobin 14.1 g/dL (11.7-16.6); Lymphocytes % 47.4 %; Mean Corpuscular HGB Conc 32.8 g/dL (30.0-36.0); Mean Corpuscular Hemoglobin 29.3 pg (28.0-34.0); Mean Corpuscular Volume 89.4 fl (80-94); Mean Platelet Volume 10.1 fL (7.4-10.4); Monocytes # 0.7 10^3/uL (0.2-0.9); Monocytes % 10.2 %; Neutrophils # 2.44 10^3/uL (1.8-7.7); Neutrophils % 38.4 %; Nucleated Red Blood Cells % 0 %; Platelet Count 251 10^3/cmm (130-400); Red Blood Count 4.81 10^6/uL (4.1-5.3); Red Cell Distribution Width 12.5 % (12.1-15.1); White Blood Count 6.4 10^3/uL (4.0-10.0)
[2021-08-21 06:41] LABS: D Dimer 0.64 ug/mIFEU (0-0.59)
[2021-08-21 06:43] LABS: Alanine Aminotransferase 55 U/L (0-41); Albumin Level 3.1 g/dL (3.5-5.2); Alkaline Phosphatase 93 IU/L (40-130); Anion Gap 12.7 (5-19); Aspartate Amino Transferase 30 U/L (0-40); Blood Urea Nitrogen 22 mg/dL (6-20); C Reactive Protein 11.9 mg/L (0.0-4.9); Calcium 8.8 mg/dL (8.5-10.5); Carbon Dioxide 25 mmol/L (22-29); Chloride 107 mmol/L (98-107); Globulin 2.5 g/dL (1.3-4.6); Glomerular Filtration Rate 69.8 mL/min (90-130); Glucose 84 mg/dL (65-115); Osmolality Calculated 293 mOsm/kg (285-295); Potassium 4.7 mmol/L (3.5-5.1); Sodium 140 mmol/L (136-145); Total Bilirubin 0.5 mg/dL (0.15-1.2); Total Protein 5.6 g/dL (6.6-8.7)
[2021-08-21] MEDS: pantoprazole DR 40 mg Tablet PO (09:02)
[2021-08-21] MEDS: enoxaparin 80 mg/0.8 mL Syringe SUBCUT ×2 (09:02→21:54)
--- NOTE | 2021-08-21 17:18 | P.CONIM_ITS ---
Providers/Reason For Consult Consulting Physician/Specialty*: Cardiology Reason for Consult*: Bradycardia multiple sinus pauses Attending Physician: Jose De Jesus Miner Primary Care Provider: Jimy Cortez DO History of Present Illness History of Present Illness Fredo Johnson is a 56 year old male past medical history significant for obstructive sleep apnea with questionable compliance was admitted with Covid pneumonia, patient was noted to have more than 3 to 4-second pauses while asleep occasionally he drops down into 40s. Patient was also started on remdesivir but bradycardia and heart blocks were noted before starting of remdesivir. He is on oxygen. Please note that I have not examined the patient personally due to Covid pneumonia history and physical as per hospitalist colleague and nurses and documentation. Patient denies any dizziness presyncope or syncope. Blood pressure vitals are stable. Review of Systems Const: Denies: fever(s), chills, body aches or malaise Eyes: Denies: change in vision or eye redness ENMT: Denies: throat pain, oral sores or ear or mastoid pain Card: Denies: chest pain, edema, pre-syncope or dyspnea on exertion Resp: Denies: dyspnea, productive cough, change in phlegm color or hemoptysis GI: Denies: abdominal pain, nausea, vomiting, diarrhea, constipation, hematochezia or melena : Denies: flank pain, difficulty urinating, urinary frequency or hematuria Musc: Denies: back pain, joint swelling or joint redness Skin/Breast: Denies: rash, sores or new lesions Neuro: Denies: headache(s), numbness in extremities, weakness in extremities, dizziness, confusion or seizure-like activity Endo: Denies: polyuria or polydipsia Stephon/Lymph: Denies: easy bleeding or purpura All/Imm: Denies: urticaria, throat swelling or tongue swelling Meds/Allergies Home Medications and Allergies Home Medications Medication Instructions Recorded Confirmed Last Taken Type lisinopril 10 mg PO QAM 08/18/21 08/18/21 08/18/21 06:30 History sulfamethoxazole-trimethoprim 1 tab PO BID 08/18/21 08/18/21 08/18/21 06:30 History [Bactrim DS] Allergies Allergy/AdvReac Type Severity Reaction Status Date / Time No Known Allergies Allergy Verified 08/18/21 15:13 Current Medications Current Medications Generic Name Dose Route Start Last Admin Trade Name Freq PRN Reason Stop Dose Admin Artificial Tears 1 drop 08/19/21 15:20 08/19/21 17:08 Artificial Tears Op Soln 15 Ml Btl EYE-BOTH 1 drop Q4H PRN Administration DRY EYE(S) Cetirizine HCl 10 mg 08/19/21 15:20 08/19/21 16:50 Cetirizine 10 Mg Tablet PO 10 mg DAILY PRN Administration ALLERGIES Enoxaparin Sodium 80 mg 08/19/21 10:30 08/21/21 09:02 Enoxaparin 80 Mg/0.8 Ml Syringe SUBCUT 80 mg Q12H YARON Administration Pantoprazole Sodium 40 mg 08/19/21 09:00 08/21/21 09:[address] 40 Mg Tablet PO 40 mg DAILY YARON Administration PFSH Acute PFSH: Medical History (Updated 08/21/21 @ 22:44 by Jose De Jesus Miner MD) HTN (hypertension) Surgical History (Updated 08/18/21 @ 20:41 by Jose De Jesus Miner MD) History of back surgery Family History Other Cancer Social History Smoking and tobacco status: former smoker Alcohol intake: current Alcohol intake frequency: holidays/special occasions only Substance/Drug Use: never Lives independently: Yes Household members: none Marital status: Single Current occupational status: employed Vitals/I&O/Wt Last Vital Signs Temp 98.5 F 08/21/21 16:00 Pulse 86 08/21/21 16:00 Resp 20 H 08/21/21 16:00 BP 109/84 08/21/21 16:00 Pulse Ox 90 08/21/21 16:00 08/21/21 08/21/21 08/21/21 06:59 14:59 22:59 Intake Total 240 / 1460 Balance 240 / 860 Physical Exam Narrative: EXAM NARRATIVE: Please note that I have not examined the patient due to Covid pneumonia physical examination as per medicine A&P Assessment and plan (1) Heart block: Patient intermittent heart block with sinus pauses while asleep. Most ant caspery this secondary to high vagal tone/sleep apnea advised to wear CPAP. Will continue to monitor closely if patient continued to exhibit significant frequent and heart blocks while awake, we may will ask to stop remdesivir, continue to monitor, currently patient is not on any ilsa angel or other medicine that can result in heart blocks or bradycardia, electrolyte are within normal limits. He is not hypoxic as well. 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
[2021-08-21] MEDS: remdesivir 100 MG in sodium chloride 0.9% (100 ml) 80 ML IV (18:52)
--- NOTE | 2021-08-21 22:41 | P.PN_ITS ---
Subjective Subjective: Interval history: He is overall doing better. Breathing improving. No diarrhea. No chest pain or pressure. Discussed with him finding of pauses, multiple, up to 4.5 seconds in duration. Discussed possible heart block, possibly Mobitz 2. Discussed this type of heart block may need to be treated with pacemaker. He feels the bradycardia and pauses may be secondary to sleep apnea as he has been unable to use CPAP recently. He does not tolerate regular mask, uses a special device over his nose. He is reobtaining the CPAP supplies with [place] [facility]. Vitals/I&O/Wt Last Vital Signs Temp 98.3 F 08/21/21 20:00 Pulse 84 08/21/21 20:00 Resp 18 08/21/21 20:00 BP 108/81 08/21/21 20:00 Pulse Ox 90 08/21/21 20:00 08/21/21 08/21/21 08/21/21 06:59 14:59 22:59 Intake Total 240 / 1460 580 / 580 Output Total 1000 / 1000 Balance 240 / 860 -420 / -420 Physical Exam Const: COMMON NORMALS: no acute distress, patient oriented x3 and alert GENERAL APPEARANCE: cooperative ORIENTATION/CONSCIOUSNESS: Yes awake OTHER: More comfortable. HENMT: COMMON NORMALS: oropharynx normal Neck/C-Spine: COMMON NORMALS: no JVD Resp: COMMON NORMALS: normal respiratory effort and clear to auscultation bilaterally AUSCULTATION: clear to auscultation bilaterally Cardio: COMMON NORMALS: no JVD, regular rhythm, S1 normal heart sound present, S2 normal heart sound present and No murmurs present (Cardio) RHYTHM: regular rhythm HEART SOUNDS: S1 normal heart sound present and S2 normal heart sound present GI: COMMON NORMALS: Normal to inspection, nondistended, normoactive bowel sounds present, Soft to palpation and non-tender PALPATION: Yes Soft to palpation Extremity: COMMON NORMALS: no joint enlargement and no pedal edema Neuro: COMMON NORMALS: patient oriented x3 and moves all extremities SENSORIUM/ORIENTATION: Yes alert Skin: COMMON NORMALS: no rashes or lesions noted GENERAL SKIN EXAM: no rashes or lesions noted Data : 08/21/21 05:50 08/21/21 05:50 A&P Assessment and plan (1) Heart block: Possible heart block with pauses, multiple, up to 4.5 seconds in duration. Appears to have dropped QRSs, with appearance of possible first or second type second-degree block. Difficult to ascertain given some differences in NV interval with appearance in one instance of possibly prolonging NV interval. And others appears to have dropped beats without changes in NV interval. Appreciate cardiology assessment. He feels these episodes of bradycardia and pauses may be related to his sleep apnea and recent inability to use CPAP. He is setting up to get his CPAP supplies (he uses special over the nose device as he cannot tolerate regular CPAP mask) [facility] TSH is normal. Electrolytes are okay. Not on ilsa blockers. Status: Acute (2) Atypical pneumonia: Severe COVID-19 pneumonia. Oxygenation appears to be showing gradual improvement. Currently down to 2 L nasal cannula. Discussed with him if continues to improve, may be able to discharge home to continue recovery with oxygen. Continue remdesivir. Not on steroids due to recovering from acute hepatitis A infection. D-dimer elevation, transaminitis would fit also with COVID-19 infection. Currently unable to obtain CT angiogram or complete VQ scan. With D-dimer elevation discussed with him for now empiric anticoagulation until can rule out PE. Status: Acute (3) Hypoxia: Improving. Status: Acute (4) Acute hepatitis A: Transaminitis resolving. It may be that he is on the tail end of the infection. Unclear source, claims possibly from sewage overflowing in his house. States gets takeout from a few local places. Denies any drug use. States is not sexually active. Follow-up liver function. Hold off any further Bactrim. Avoid NSAIDs. Monitor blood pressures, avoid hypotension. Follow-up coagulation studies. Status: Acute (5) Hypotension: Resolved. Continue to hold lisinopril. Received multiple fluid boluses on adamant. Poor oral intake recently, and states continue taking lisinopril, also in the setting of acute kidney injury. Hold further antihypertensives. Status: Acute (6) Acute kidney injury: Resolving Appears to responded well to fluid challenge. Producing urine. Continue supportive care. Monitor I&O. Hold lisinopril. Discontinue Bactrim. Avoid NSAIDs. Suspected prerenal, possibly ATN, poor urine output recently, but has put out some urine after fluid challenges in ER. Possible contribution from Bactrim, lisinopril. Reassess renal function. 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
[2021-08-22] VITALS (9 sets, daily range): BP systolic 99–113; BP diastolic 67–79; PULSE 77–127; RESP 17–20; TEMP 36.4–36.9; O2SAT 91–96
[2021-08-22 05:20] LABS: Basophils # 0.1 10^3/uL (0.0-0.1); Basophils % 0.6 %; Eosinophils # 0.2 10^3/uL (0.0-0.8); Hematocrit 42.3 % (42.0-52.0); Lymphocytes # 4.2 10^3/uL (0.8-4.8); Lymphocytes % 51.9 %; Mean Corpuscular HGB Conc 33.1 g/dL (30.0-36.0); Mean Corpuscular Hemoglobin 29.1 pg (28.0-34.0); Mean Corpuscular Volume 87.9 fl (80-94); Mean Platelet Volume 9.8 fL (7.4-10.4); Monocytes # 0.7 10^3/uL (0.2-0.9); Monocytes % 8.8 %; Neutrophils % 36.1 %; Nucleated Red Blood Cells % 0 %; Platelet Count 241 10^3/cmm (130-400); Red Blood Count 4.81 10^6/uL (4.1-5.3); Red Cell Distribution Width 12.4 % (12.1-15.1)
[2021-08-22 05:53] LABS: Alanine Aminotransferase 46 U/L (0-41); Albumin Level 3.1 g/dL (3.5-5.2); Alkaline Phosphatase 85 IU/L (40-130); Anion Gap 12.2 (5-19); Aspartate Amino Transferase 26 U/L (0-40); Blood Urea Nitrogen 20 mg/dL (6-20); Calcium 8.7 mg/dL (8.5-10.5); Carbon Dioxide 24 mmol/L (22-29); Chloride 106 mmol/L (98-107); Globulin 3.1 g/dL (1.3-4.6); Glomerular Filtration Rate 87.9 mL/min (90-130); Glucose 93 mg/dL (65-115); Osmolality Calculated 288 mOsm/kg (285-295); Potassium 4.2 mmol/L (3.5-5.1); Sodium 138 mmol/L (136-145); Total Bilirubin 0.5 mg/dL (0.15-1.2); Total Protein 6.2 g/dL (6.6-8.7)
[2021-08-22] MEDS: pantoprazole DR 40 mg Tablet PO (08:35)
[2021-08-22] MEDS: enoxaparin 80 mg/0.8 mL Syringe SUBCUT ×2 (10:47→23:09)
--- NOTE | 2021-08-22 16:16 | PM.PN ---
Subjective Subjective: Interval history: Patient had a few more pauses noted overnight from 3 to 4 seconds 6 AM and 9 AM, his nurse told me she is not sure while he was awake or not. Otherwise no more significant arrhythmia noted Vitals/I&O/Wt Last Vital Signs Temp 98.4 F 08/22/21 15:38 Pulse 100 08/22/21 15:38 Resp 18 08/22/21 15:38 BP 110/73 08/22/21 15:38 Pulse Ox 95 08/22/21 15:38 08/22/21 08/22/21 08/22/21 06:59 14:59 22:59 Intake Total 240 / 820 480 / 480 Output Total 750 / 1750 350 / 350 Balance -510 / -930 130 / 130 Physical Exam Narrative: EXAM NARRATIVE: Please note that I have not examined the patient due to Covid pneumonia physical examination as per medicine Data : 08/22/21 04:59 08/22/21 04:59 A&P Assessment and plan (1) Heart block: Patient intermittent heart block with sinus pauses while asleep. Most likely this secondary to high vagal tone/sleep apnea advised to wear CPAP. Will continue to monitor closely if patient continued to exhibit significant frequent and heart blocks while awake, we may will ask to stop remdesivir, continue to monitor, currently patient is not on any ilsa angel or other medicine that can result in heart blocks or bradycardia, electrolyte are within normal limits. He is not hypoxic as well. Since patient had couple of more episodes of pauses early this morning he already received 3 doses of remdesivir I discussed with Dr. Church, at this point we may will stop the remdesivir, advised to use CPAP. 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
--- NOTE | 2021-08-22 16:50 | PC.NURSE ---
Verbal orders given to ALEXANDRO remdesli.
--- NOTE | 2021-08-22 18:18 | XRR_ITS ---
PROCEDURE INFORMATION: Exam: XR Chest Exam date and time: 08/22/2021 6:18 PM Age: 56 years old Clinical indication: Other: Diminished on R TECHNIQUE: Imaging protocol: XR of the chest. Views: 1 view. COMPARISON: CR XR chest 1V portable [id number] 08/18/2021 3:45 PM FINDINGS: Lungs: Stable peripheral interstitial opacities in both lungs, more extensive on the right. Pleural spaces: No pleural effusion. No pneumothorax. Heart/Mediastinum: The cardiac silhouette and mediastinal contours are unremarkable. Bones/joints: Unremarkable for age. XR/XR chest 1V portable [id number] IMPRESSION: 1. Stable peripheral interstitial opacities in both lungs, more extensive on the right. Findings are commonly seen in COVID-19 pneumonia. Differential diagnosis also includes other atypical pneumonia and organizing pneumonia. Recommend followup chest x-ray to ensure resolution. 2. Incidental/nonacute findings are listed in the report. Radiation Dose CTDIVOL = (mGy): DLP = (mGy-cm)
--- NOTE | 2021-08-22 18:22 | P.PN_ITS ---
Subjective Subjective: Interval history: Reports he was breathing a bit worse overnight. Could not get very good sleep due to that. Discussed with him finding of 9- second pause on telemetry as per discussion with cardiology earlier today. Vitals/I&O/Wt Last Vital Signs Temp 98.4 F 08/22/21 15:38 Pulse 100 08/22/21 15:38 Resp 18 08/22/21 15:38 BP 110/73 08/22/21 15:38 Pulse Ox 95 08/22/21 15:38 08/22/21 08/22/21 08/22/21 06:59 14:59 22:59 Intake Total 240 / 820 480 / 480 Output Total 750 / 1750 350 / 350 Balance -510 / -930 130 / 130 Physical Exam Const: COMMON NORMALS: no acute distress, patient oriented x3 and alert GENERAL APPEARANCE: cooperative ORIENTATION/CONSCIOUSNESS: Yes awake HENMT: COMMON NORMALS: oropharynx normal Neck/C-Spine: COMMON NORMALS: no JVD Resp: COMMON NORMALS: normal respiratory effort and clear to auscultation bilaterally AUSCULTATION: clear to auscultation bilaterally Cardio: COMMON NORMALS: no JVD, regular rhythm, S1 normal heart sound present, S2 normal heart sound present and No murmurs present (Cardio) RHYTHM: regular rhythm HEART SOUNDS: S1 normal heart sound present and S2 normal heart sound present GI: COMMON NORMALS: Normal to inspection, nondistended, normoactive bowel sounds present, Soft to palpation and non-tender PALPATION: Yes Soft to palpation Extremity: COMMON NORMALS: no joint enlargement and no pedal edema Neuro: COMMON NORMALS: patient oriented x3 and moves all extremities SENSORIUM/ORIENTATION: Yes alert Skin: COMMON NORMALS: no rashes or lesions noted GENERAL SKIN EXAM: no rashes or lesions noted Data : 08/22/21 04:59 08/22/21 04:59 A&P Assessment and plan (1) Heart block: Bradycardia with intermittent heart block, pauses, up to 9 seconds long today. Prior to that multiple 4.5-second pauses. Bradycardia, heart block started before he was started on dysuria, but remdesivir discontinued in case contributing. TSH had been previously checked and normal. Electrolytes normal. Not on ilsa blockers. Appreciate cardiology recommendations, with suspected sleep apnea is the culprit. He has been unable to get supplies for his CPAP at home. Appreciate case management assistance with trying to get the set up on a more urgent basis. Requesting CPAP nightly here, although he needs nasal pillows as he cannot tolerate regular mask. Something can be found for him. Appears to have dropped QRSs, with appearance of possible first or second type second-degree block. Difficult to ascertain given some differences in [place] interval with appearance in one instance of possibly prolonging [place] interval. And others appears to have dropped beats without changes in [place] interval. Appreciate cardiology assessment. Status: Acute (2) Atypical pneumonia: Discontinue remdesivir due to above. Not on steroids due to recovering from acute hepatitis A infection. Continue oxygen support. Continue monitoring in the hospital given bradycardia with significant pauses. Supportive clay atment. Somewhat diminished lung sounds on the right, decreased air entry/tight sounding. Assess chest x-ray, but will also add albuterol scheduled and as needed. Severe COVID-19 pneumonia. Oxygenation appears to be showing gradual improvement. Currently down to 2 L nasal cannula. D-dimer elevation, transaminitis would fit also with COVID-19 infection. Currently unable to obtain CT angiogram or complete VQ scan. With D-dimer elevation discussed with him for now empiric anticoagulation until can rule out PE. Status: Acute (3) Hypoxia: Improving. Status: Acute (4) Acute hepatitis A: Transaminitis resolving. It may be that he is on the tail end of the infection. Unclear source, claims possibly from sewage overflowing in his house. gets takeout from a few local places. Denies any drug use. [facility] is not sexually active. Follow-up liver function. Hold off any further Bactrim. Avoid NSAIDs. Monitor blood pressures, avoid hypotension. Follow-up coagulation studies. Status: Acute (5) Hypotension: On presentation. Resolved. Continue to hold lisinopril. Received multiple fluid boluses on adamant. Poor oral intake recently, and states continue taking lisinopril, also in the setting of acute kidney injury. Hold further antihypertensives. Status: Acute (6) Acute kidney injury: Resolving Appears to responded well to fluid challenge. Producing urine. Continue supportive care. Monitor I&O. Hold lisinopril. Discontinue Bactrim. Avoid NSAIDs. Suspected prerenal, possibly ATN, poor urine output recently, but has put out so me urine after fluid challenges in ER. Possible contribution from Bactrim, lisinopril. Reassess renal function. Status: Acute Attestations Medical Necessity Statement*: Continue admission for assessment management of recurrent episodes of heart block, bradycardia, atypical pneumonia and hypoxia in a gentleman also recovering from acute hepatitis A, and acute kidney injury. Coding Level of Care Code Acute Weaver [employer]oom for [facility] Fwd Diagnoses Heart block I45.9 Atypical pneumonia J18.9 Hypoxia R09.02 Acute hepatitis A B15.9 Hypotension I95.9 Acute kidney injury N17.9
[2021-08-23] VITALS (14 sets, daily range): BP systolic 92–113; BP diastolic 68–81; PULSE 71–114; RESP 12–20; TEMP 36.4–36.9; O2SAT 93–97
[2021-08-23] MEDS: pantoprazole DR 40 mg Tablet PO (09:39)
[2021-08-23] MEDS: amlodipine 5 mg Tablet PO (09:39)
--- NOTE | 2021-08-23 11:19 | USCV_ITS ---
Fredo Johnson Age: 56 Gender: M : 1965 Exam Date: 08/23/2021 14:35 Ordering Phys: Milagros Torres MD ([email or web address]) Technologist: Irina Clemens [place] [facility] [place]: Arrythmia, pauses BP: 113 / 81 HR: 95 Rhythm: Sinus Technical Quality: Fair MEASUREMENTS (Male / Female) Normal Values 2D ECHO LV Diastolic Diameter PLAX 4.0 cm 4.2 - 5.9 / 3.9 - 5.3 cm LV Systolic Diameter PLAX 2.1 cm LV Chamber Size 3.5 cm IVS Diastolic Thickness 1.3 cm 0.6 - 1.0 / 0.6 - 0.9 cm IVS Systolic Thickness 2.0 cm LVPW Diastolic Thickness 1.4 cm 0.6 - 1.0 / 0.6 - 0.9 cm LVPW Systolic Thickness 1.8 cm RV Chamber Size 1.7 cm LVOT Diameter 2.2 cm LV Ejection Fraction 2D Teich 79.0 % LV Ejection Fraction MOD 2C 62.9 % LV Ejection Fraction 2C AL 63.0 % LA Diameter 2.3 cm LA Width 2.3 cm LA Height 4.3 cm RA Width 1.8 cm RA Height 4.5 cm Aorta at Sinotubular Diameter 3.0 cm M-MODE LV Diastolic Diameter MM 5.1 cm 4.2 - 5.9 / 3.9 - 5.3 cm LV Systolic Diameter MM 2.8 cm LV Ejection Fraction MM Teich 76.8 % IVS Diastolic Thickness MM 1.2 cm 0.6 - 1.0 / 0.6 - 0.9 cm IVS Systolic Thickness MM 1.7 cm LVPW Diastolic Thickness MM 1.5 cm 0.6 - 1.0 / 0.6 - 0.9 cm LVPW Systolic Thickness MM 2.1 cm RV Diastolic Diameter MM 1.5 cm Aortic Annulus Diameter 3.6 cm LA Ao Ratio MM 0.7 MV E Point Septal Separation 0.4 cm DOPPLER AV Peak Velocity 98.0 cm/s LVOT Peak Velocity 90.0 cm/s AV Area Cont Eq vti 4.0 cm squared AV Area Cont Eq pk 3.5 cm squared MV Area PHT 4.2 cm squared Mitral E to A Ratio 0.6 MV E' Velocity 31.0 cm/s Mitral E to MV E' Ratio 5.5 Mitral E to LV E' Lateral Ratio 5.9 Mitral E to LV E' Septal Ratio 5.3 TV Peak E Velocity 68.0 cm/s Right Atrial Pressure 3.0 mmHg PV Peak Velocity 62.0 cm/s RV Acceleration Time 0.1 s RV Ejection Time 0.2 s RV AcT/ET 0.5 FINDINGS Left Ventricle Normal left ventricular cavity size. Normal left ventricular systolic function. No regional wall motion abnormalities. Left ventricular ejection fraction is estimated at 70 %. Grade I/IV diastolic dysfunction (abnormal relaxation filling pattern), normal to mildly elevated filling pressures. Right Ventricle The right ventricle is normal in size and function. RVSP could not be calculated due to incomplete tricuspid regurgitation velocity profile. Right Atrium The right atrium is normal in size. Left Atrium The left atrium is normal in size. Mitral Valve Mildly thickened mitral valve. No mitral valve stenosis. Trace mitral valve regurgitation. Aortic Valve Mild aortic valve calcification. No aortic valve stenosis. Trace aortic valve regurgitation. Tricuspid Valve Structurally normal tricuspid valve without significant stenosis or regurgitation. Pulmonic Valve Structurally normal pulmonic valve without significant stenosis. There is no pulmonic regurgitation. Pericardium Normal pericardium without effusion. Aorta Normal ascending aorta dimension. CONCLUSIONS 1-Normal left ventricular cavity size. Normal left ventricular systolic function. No regional wall motion abnormalities. Left ventricular ejection fraction is estimated at 70 %. Grade I/IV diastolic dysfunction (abnormal relaxation filling pattern), normal to mildly elevated filling pressures. 2-The right ventricle is normal in size and function. RVSP could not be calculated due to incomplete tricuspid regurgitation velocity profile. 3-There is no pericardial effusion. 4-No significant valve abnormalities. 5-Right atrial pressure is around 2-5 mm of mercury. 6-There are no prior echocardiogram studies to compare. Milagros Torres MD (Electronically Signed) Final Date: 24 August 2021 00:08 S
--- NOTE | 2021-08-23 11:30 | PM.PN ---
Subjective Subjective: Interval history: He was woken up at night with nursing staff coming to check on him. He had a 6-second pause at 220 in the morning at the time he was wearing his CPAP. Subsequently additional 2 4.5-second pauses this morning. Then between 8 AM and 803 episodes of what appears to like polymorphic VT. Some episodes as long as several minutes long. At the time he was awake and alert, nurse a difficult time palpating regular pulse. He was sitting up eating breakfast. Currently no chest pain. Breathing overall gradually improving. Appetite not the best. Some discomfort in his feet. No swelling, no redness. Thinks may be from inactivity. Vitals/I&O/Wt Last Vital Signs Temp 98.5 F 08/23/21 08:00 Pulse 92 08/23/21 10:17 Resp 16 08/23/21 10:14 BP 113/81 08/23/21 08:00 Pulse Ox 95 08/23/21 10:14 08/22/21 08/23/21 08/23/21 22:59 06:59 14:59 Intake Total 240 / 720 Balance 240 / 370 Physical Exam Const: COMMON NORMALS: no acute distress, patient oriented x3 and alert GENERAL APPEARANCE: cooperative ORIENTATION/CONSCIOUSNESS: Yes awake OTHER: More comfortable. HENMT: COMMON NORMALS: oropharynx normal Neck/C-Spine: COMMON NORMALS: no JVD Resp: COMMON NORMALS: normal respiratory effort and clear to auscultation bilaterally AUSCULTATION: clear to auscultation bilaterally Cardio: COMMON NORMALS: no JVD, regular rhythm, S1 normal heart sound present, S2 normal heart sound present and No murmurs present (Cardio) RHYTHM: regular rhythm HEART SOUNDS: S1 normal heart sound present and S2 normal heart sound present GI: COMMON NORMALS: Normal to inspection, nondistended, normoactive bowel sounds present, Soft to palpation and non-tender PALPATION: Yes Soft to palpation Extremity: COMMON NORMALS: no joint enlargement and no pedal edema Neuro: COMMON NORMALS: patient oriented x3 and moves all extremities SENSORIUM/ORIENTATION: Yes alert Skin: COMMON NORMALS: no rashes or lesions noted GENERAL SKIN EXAM: no rashes or lesions noted Data : 08/22/21 04:59 08/22/21 04:59 A&P Assessment and plan (1) Heart block: Wore his CPAP overnight. He was woken up at night with nursing staff coming to check on him. He had a 6-second pause at 02:20 in the morning at the time he was wearing his CPAP. Subsequently additional 2 4.5-second pauses this morning. Then between 8 AM and 803 episodes of what appears to like polymorphic VT as below. Cardiology conducting thorough investigation. TTE ordered. Repeat CBC, CMP, magnesium. With hypoxia, arrhythmia, improvement in renal function will obtain CTA to exclude PE. During the hospital stay episodes of bradycardia with intermittent heart block, pauses, up to 9 seconds long today. Prior to that multiple 4.5-second pauses. Bradycardia, heart block started before he was started on remdesivir, but remdesivir discontinued in case contributing. TSH had been previously checked and normal. Electrolytes normal. Not on ilsa blockers. Sleep apnea was thought to be the culprit, although appears still having pauses while wearing his CPAP. As an aside he has been having issues with getting supplies for his CPAP, and has been working on this with [place]. Appreciate case management help with making sure he gets regular supplies for his CPAP. Requesting CPAP nightly here, although he needs nasal pillows as he cannot tolerate regular mask. Something can be found for him. Appears to have dropped QRSs, with appearance of possible first or second type second-degree block. Difficult to ascertain given some differences in [place] interval with appearance in one instance of possibly prolonging MT interval. And others appears to have dropped beats without changes in MT interval. Appreciate cardiology assessment. Status: Acute (2) Sleep apnea: Reports both obstructive and central sleep apnea. Has been set up with CPAP, and overall since May since he has been using it has been feeling the best he has been for a long time. Follow-up with pulmonology. [facility] as he has not been able to use it recently due to running out of supplies after moving here from [place]. CM will continue to see if they can assist him with this. 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 Some episodes as long as up to couple minutes long. At the time he was awake and alert, nurse a difficult time palpating regular pulse. He was sitting up eating breakfast. Cardiology investigating. TTE ordered. Status: Acute (4) Atypical pneumonia: Discontinued remdesivir due to above. Not on steroids due to recovering from acute hepatitis A infection. Continue oxygen support. Continue monitoring in the hospital given bradycardia with significant pauses. Supportive treatment. Oxygenation overall doing okay. On 2 L nasal cannula. Chest x-ray largely unchanged. Slightly diminished lung sounds. Albuterol scheduled and as needed. Severe COVID-19 pneumonia. Oxygenation appears to be showing gradual improvement. Currently down to 2 L nasal cannula. D-dimer elevation, transaminitis would fit also with COVID-19 infection. Currently unable to obtain CT angiogram or complete VQ scan. With D-dimer elevation discussed with him for now empiric anticoagulation until can rule out PE. Renal function improved. Obtain CTA. Status: Acute (5) Hypoxia: Improving. Status: Acute (6) Acute hepatitis A: Transaminitis resolving. It may be that he is on the tail end of the infection. Unclear source, claims possibly from sewage overflowing in his house. States gets takeout from a few local places. Denies any drug use. States is not sexually active. Follow-up liver function. Hold off any further Bactrim. Avoid NSAIDs. Monitor blood pressures, avoid hypotension. Follow-up coagulation studies. Status: Acute (7) Hypotension: On presentation. Resolved. Continue to hold lisinopril. Received multiple fluid boluses on adamant. Poor oral intake recently, and states continue taking lisinopril, also in the setting of acute kidney injury. Hold further antihypertensives. Per nursing report had his lisinopril and Bactrim pill bottles out today. Questions whether he may have been taking his lisinopril. Taken to be stored by nursing staff. Status: Acute (8) Acute kidney injury: Resolving Appears to responded well to fluid challenge. Producing urine. Continue supportive care. Monitor I&O. Hold lisinopril. Discontinue Bactrim. Avoid NSAIDs. Suspected prerenal, possibly ATN, poor urine output recently, but has put out some urine after fluid challenges in ER. Possible contribution from Bactrim, lisinopril. Reassess renal function. Status: Acute Attestations Medical Necessity Statement*: Continue admission for assessment management of recurrent positive events, investigation of possible VT, recovering from severe Covid, recent hepatitis A. Coding Level of Care Code Acute Transfer Agent for [facility] Fwd Diagnoses Heart block I45.9 Sleep apnea G47.30 Abnormal heart rhythm I49.9 Atypical pneumonia J18.9 Hypoxia R09.02 Acute hepatitis A B15.9 Hypotension I95.9 Acute kidney injury N17.9
[2021-08-23] MEDS: enoxaparin 80 mg/0.8 mL Syringe SUBCUT ×2 (11:31→23:16)
--- NOTE | 2021-08-23 11:51 | CTR_ITS ---
PROCEDURE INFORMATION: Exam: CTA Chest With Contrast Exam date and time: 08/23/2021 11:51 AM Age: 56 years old Clinical indication: Shortness of breath; Patient HX: Sob/covid; Additional info: Hypoxia, arrhythmia TECHNIQUE: Imaging protocol: Computed tomographic angiography of the chest with contrast. 3D rendering (Not supervised by radiologist): MIP reconstructed images were created by the technologist. Radiation optimization: All CT scans at this facility use at least one of these dose optimization techniques: automated exposure control; mA and/or kV adjustment per patient size (includes targeted exams where dose is matched to clinical indication); or iterative reconstruction. Contrast material: OMNI 350; Contrast volume: 68 ml; Contrast route: INTRAVENOUS (IV); COMPARISON: CR (CHEST, ) 08/22/2021 6:21 PM RADIATION DOSE METRICS: Total DLP (mGy-cm): 569.72 FINDINGS: Pulmonary arteries: No pulmonary artery embolism identified. Aorta: Mild aortic arch atherosclerotic calcification without ectasia. Thyroid: The bilateral thyroid lobes are unremarkable. Lungs: Patchy peripheral ground-glass airspace opacities with architectural distortion in the mid-lower lung zones, relative apical sparing. Pleural spaces: No pneumothorax. No pleural effusion. Heart: Normal. No pericardial effusion. Lymph nodes: No enlarged lymph nodes. Spleen: A small medial splenule is present. Bones/joints: Unremarkable. No acute fracture. Soft tissues: See Lungs finding. CT/CT angio chest PE protcl [id number] IMPRESSION: 1. No pulmonary artery embolism identified. 2. Commonly reported imaging features of COVID-19 pneumonia are present (subacute-chronic). Other processes such as influenza pneumonia and organizing pneumonia, as can be seen with drug toxicity and connective tissue disease, can cause a similar imaging pattern. Radiation Dose CTDIVOL = (mGy): DLP = 569.72 (mGy-cm)
[2021-08-23 12:23] LABS: Alanine Aminotransferase 48 U/L (0-41); Albumin Level 3.4 g/dL (3.5-5.2); Alkaline Phosphatase 78 IU/L (40-130); Anion Gap 11.3 (5-19); Aspartate Amino Transferase 29 U/L (0-40); Blood Urea Nitrogen 18 mg/dL (6-20); Carbon Dioxide 29 mmol/L (22-29); Chloride 106 mmol/L (98-107); Creatinine Clr Calc Pharmacy 96.8747; Glomerular Filtration Rate 77.9 mL/min (90-130); Glucose 145 mg/dL (65-115); Osmolality Calculated 298 mOsm/kg (285-295); Potassium 4.3 mmol/L (3.5-5.1); Sodium 142 mmol/L (136-145); Total Bilirubin 0.4 mg/dL (0.15-1.2); Total Protein 6.4 g/dL (6.6-8.7)
[2021-08-23] MEDS: iohexol 350 mg/mL 100 mL Btl IV (15:16)
--- NOTE | 2021-08-23 21:39 | PM.PN ---
Subjective Subjective: Interval history: Patient had episode of 6-second pause on CPAP in the night while asleep, patient has this morning wide-complex arrhythmia most likely pseudoventricular tachycardia it was sustained Vitals/I&O/Wt Last Vital Signs Temp 97.6 F 08/23/21 20:00 Pulse 114 H 08/23/21 20:00 Resp 20 H 08/23/21 20:00 BP 101/68 08/23/21 20:00 Pulse Ox 94 08/23/21 20:00 Physical Exam Narrative: EXAM NARRATIVE: GENERAL: Patient is alert, awake and oriented x3. NECK: No jugular vein distension. HEENT: No cyanosis. No icterus. No pallor. HEART: Regular S1 and S2. No murmur, rub or gallop. LUNGS: Clear to auscultate bilaterally. ABDOMEN: Soft, nontender and nondistended. Positive bowel sounds. No guarding, rebound or tenderness. CENTRAL NERVOUS SYSTEM: Grossly nonfocal. EXTREMITIES: Lower extremities without edema bilaterally. Data : 08/22/21 04:59 08/23/21 11:54 Micro: Microbiology 08/18/21 14:40 Blood Culture - Final Blood NO GROWTH AFTER 5 DAYS 08/18/21 14:40 Blood Culture - Final Blood NO GROWTH AFTER 5 DAYS A&P Assessment and plan (1) Heart block: Patient continues to have long pauses during sleep while on CPAP today he has a 6-second pause he has history of Covid could be myocarditis induced, electrolytes are within normal limit he is not on any ilsa angel if he continues to have long pauses may will recommend Micra AV pacemaker we will involve Dr. Olsen . Status: Acute (2) Atypical pneumonia: As per medicine Status: Acute (3) Wide-complex tachycardia: Patient has wide complex tachycardia I personally examined the patient today and interviewed with him. Nurse was standing in the room when it happens patient was not dizzy did not pass out he has multiple episodes of sustained wide-complex tachycardia more than a minute he did not feel anything I can see notching in between most likely it appeared to me this is a pseudoventricular tachycardia/artifact however would like to rule out pause induced torsade ventricular tachycardia due to myocarditis we will therefore ask for echocardiogram to assess LV function, would like to rule out ischemia as well. We will continue to monitor watch him on telemetry for now. Electrolytes and magnesium within normal limit . Status: Acute Attestations Medical Necessity Statement*: Patient require continuation of hospitalization for above defined care. Coding Level of Care Code Established Pt Acute Front End Web Developer for [facility] [employer] Patient Type Established History Comprehensive Exam Comprehensive Medical Decision Making Moderate Complexity Diagnoses Heart block I45.9 Atypical pneumonia J18.9 Wide-complex tachycardia I47.2
[2021-08-24] VITALS (9 sets, daily range): BP systolic 101–123; BP diastolic 69–81; PULSE 68–109; RESP 16–18; TEMP 36.4–36.8; O2SAT 92–97
[2021-08-24 06:34] LABS: Basophils # 0.1 10^3/uL (0.0-0.1); Basophils % 0.6 %; Eosinophils # 0.1 10^3/uL (0.0-0.8); Eosinophils % 1.6 %; Hematocrit 41.4 % (42.0-52.0); Hemoglobin 13.5 g/dL (11.7-16.6); Lymphocytes # 4.5 10^3/uL (0.8-4.8); Mean Corpuscular HGB Conc 32.6 g/dL (30.0-36.0); Mean Corpuscular Hemoglobin 28.5 pg (28.0-34.0); Mean Corpuscular Volume 87.5 fl (80-94); Mean Platelet Volume 10.2 fL (7.4-10.4); Monocytes # 0.6 10^3/uL (0.2-0.9); Monocytes % 7.2 %; Neutrophils # 3.29 10^3/uL (1.8-7.7); Neutrophils % 37.9 %; Nucleated Red Blood Cells % 0 %; Platelet Count 251 10^3/cmm (130-400); Red Blood Count 4.73 10^6/uL (4.1-5.3); Red Cell Distribution Width 12.4 % (12.1-15.1); White Blood Count 8.7 10^3/uL (4.0-10.0)
[2021-08-24 06:47] LABS: INR 1.11 (0.8-1.2)
[2021-08-24 06:52] LABS: Alanine Aminotransferase 45 U/L (0-41); Albumin Level 3.5 g/dL (3.5-5.2); Alkaline Phosphatase 71 IU/L (40-130); Anion Gap 12.2 (5-19); Aspartate Amino Transferase 24 U/L (0-40); Blood Urea Nitrogen 17 mg/dL (6-20); Calcium 8.8 mg/dL (8.5-10.5); Carbon Dioxide 26 mmol/L (22-29); Chloride 106 mmol/L (98-107); Creatinine Clr Calc Pharmacy 96.8747; Globulin 2.9 g/dL (1.3-4.6); Glomerular Filtration Rate 77.9 mL/min (90-130); Glucose 98 mg/dL (65-115); Osmolality Calculated 292 mOsm/kg (285-295); Potassium 4.2 mmol/L (3.5-5.1); Sodium 140 mmol/L (136-145); Total Bilirubin 0.4 mg/dL (0.15-1.2); Total Protein 6.4 g/dL (6.6-8.7)
[2021-08-24] MEDS: pantoprazole DR 40 mg Tablet PO (09:29)
[2021-08-24] MEDS: enoxaparin 80 mg/0.8 mL Syringe SUBCUT (09:30)
[2021-08-24 15:06] LABS: Iron 87 ug/dL (59-158); Percent Saturation 40.8 % (20-50); Total Iron Binding Capacity 213 mcg/dl; Unsaturated Iron Binding 126 ug/dL (112-347)
--- NOTE | 2021-08-24 16:52 | P.PN_ITS ---
Subjective Subjective: Interval history: Hospital course, labs appreciated. On examination laying down comfortably in bed. On 2 L oxygen supplementation saturating 94%. No pauses appreciated on telemetry overnight. Heart rate since morning in sinus tachycardia. Patient denies any nausea vomiting, headache, dizziness, palpitations. Vitals/I&O/Wt Last Vital Signs Temp 98.2 F 08/24/21 15:27 Pulse 104 H 08/24/21 15:27 Resp 18 08/24/21 15:27 BP 123/81 08/24/21 15:27 Pulse Ox 92 08/24/21 15:27 08/24/21 08/24/21 08/24/21 06:59 14:59 22:59 Intake Total 240 / 240 Output Total 0 / 0 350 / 350 Balance 0 / 0 240 / 240 -350 / -110 Physical Exam Const: COMMON NORMALS: no acute distress, patient oriented x3 and alert GENERAL APPEARANCE: cooperative ORIENTATION/CONSCIOUSNESS: Yes awake OTHER: More comfortable. HENMT: COMMON NORMALS: oropharynx normal Neck/C-Spine: COMMON NORMALS: no JVD Resp: COMMON NORMALS: normal respiratory effort and clear to auscultation bilaterally AUSCULTATION: clear to auscultation bilaterally Cardio: COMMON NORMALS: no JVD, regular rhythm, S1 normal heart sound present, S2 normal heart sound present and No murmurs present (Cardio) RHYTHM: regular rhythm HEART SOUNDS: S1 normal heart sound present and S2 normal heart sound present GI: COMMON NORMALS: Normal to inspection, nondistended, normoactive bowel sounds present, Soft to palpation and non-tender PALPATION: Yes Soft to palpation Extremity: COMMON NORMALS: no joint enlargement and no pedal edema Neuro: COMMON NORMALS: patient oriented x3 and moves all extremities SENSORIUM/ORIENTATION: Yes alert Skin: COMMON NORMALS: no rashes or lesions noted GENERAL SKIN EXAM: no rashes or lesions noted Data : 08/24/21 05:55 08/24/21 05:55 Micro: Microbiology 08/18/21 14:40 Blood Culture - Final Blood NO GROWTH AFTER 5 DAYS 08/18/21 14:40 Blood Culture - Final Blood NO GROWTH AFTER 5 DAYS A&P Assessment and plan (1) Heart block: Wore his CPAP overnight. He was woken up at night with nursing staff coming to check on him. He had a 6-second pause at 02:20 in the morning at the time he was wearing his CPAP. Subsequently additional 2 4.5-second pauses this morning. Then between 8 AM and 803 episodes of what appears to like polymorphic VT as below. Cardiology conducting thorough investigation. TTE ordered. Repeat CBC, CMP, magnesium. With hypoxia, arrhythmia, improvement in renal function will obtain CTA to exclude PE. During the hospital stay episodes of bradycardia with intermittent heart block, pauses, up to 9 seconds long today. Prior to that multiple 4.5-second pauses. Bradycardia, heart block started before he was started on remdesivir, but remdesivir discontinued in case contributing. TSH had been previously checked and normal. Electrolytes normal. Not on ilsa blockers. Sleep apnea was thought to be the culprit, although appears still having pauses while wearing his CPAP. As an aside he has been having issues with getting supplies for his CPAP, and [facility] Appreciate case management help with making sure he gets regular supplies for his CPAP. Requesting CPAP nightly here, although he needs nasal pillows as he cannot tolerate regular mask. Something can be found for him. Appears to have dropped QRSs, with appearance of possible first or second type second-degree block. Difficult to ascertain given some differences in WA interval with appearance in one instance of possibly prolonging WA interval. And others appears to have dropped beats without changes in WA interval. Appreciate cardiology assessment. Status: Acute (2) Abnormal heart rhythm: Separate to the pauses and heart block issue, this morning between 8 AM and 8:03 (08/23) had episodes of what appears to like polymorphic VT on radiologic technologist mammogram. Some episodes as long as up to couple minutes long. At the time he was awake and alert, nurse a difficult time palpating regular pulse. He was sitting up eating breakfast. Cardiology investigating. TTE ordered. Status: Acute (3) Hypoxia: Improving. Status: Acute (4) Atypical pneumonia: Discontinued remdesivir due to above. Not on steroids due to recovering from acute hepatitis A infection. Continue oxygen support. Continue monitoring in the hospital given bradycardia with significant pauses. Supportive treatment. Oxygenation overall doing okay. On 2 L nasal cannula. Chest x-ray largely unchanged. Slightly diminished lung sounds. Albuterol scheduled and as needed. Severe COVID-19 pneumonia. Oxygenation appears to be showing gradual improvement. Currently down to 2 L nasal cannula. D-dimer elevation, transaminitis would fit also with COVID-19 infection. Currently unable to obtain CT angiogram or complete VQ scan. With D-dimer elevation discussed with him for now empiric anticoagulation until can rule out PE. Renal function improved. Obtain CTA. Status: Acute (5) Acute hepatitis A: Transaminitis resolving. It may be that he is on the tail end of the infection. Unclear source, claims possibly from sewage overflowing in his house. States gets takeout from a few local places. Denies any drug use. States is not sexually active. Follow-up liver function. Hold off any further Bactrim. Avoid NSAIDs. Monitor blood pressures, avoid hypotension. Follow-up coagulation studies. Status: Acute (6) Hypotension: On presentation. Resolved. Continue to hold lisinopril. Received multiple fluid boluses on adamant. Poor oral intake recently, and states continue taking lisinopril, also in the setting of acute kidney injury. Hold further antihypertensives. Per nursing report had his lisinopril and Bactrim pill bottles out today. Questions whether he may have been taking his lisinopril. Taken to be stored by nursing staff. Status: Acute (7) Acute kidney injury: Resolving Appears to responded well to fluid challenge. Producing urine. Continue supportive care. Monitor I&O. Hold lisinopril. Discontinue Bactrim. Avoid NSAIDs. Suspected prerenal, possibly ATN, poor urine output recently, but has put out some urine after fluid challenges in ER. Possible contribution from Bactrim, lisinopril. Reassess renal function. Status: Acute (8) Sleep apnea: Reports both obstructive and central sleep apnea. Has been set up with CPAP, and overall since May since he has been using it has been feeling the best he has been for a long time. Follow-up with pulmonology. [facility] as he has not been able to use it recently due to running out of supplies after moving here from [place]. CM will continue to see if they can assist him with this. Status: Acute Additional A&P Information Plan for the day: Oxygen supplementation keeping saturation over 90%. Continue with pulmonary toilet. Add Advair, Spiriva. Continue with telemetry monitoring. Will await cardiology recommendations. Continue CPAP at night. Discussed with case management for need of CPAP as an outpatient. Attestations Medical Necessity Statement*: Requires further hospitalization for management of hypoxia, COVID-19 pneumonia, frequent pauses on telemetry, sleep apnea Time Spent in Patient Care: Greater than 35 minutes (>than 50% of time spent in counselling and/or direct pt care on unit) . 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
--- NOTE | 2021-08-24 18:16 | PM.PN ---
Subjective Subjective: Interval history: Patient had episode of sinus pause for 6 seconds in the middle of the night while asleep denies any symptoms. Patient has 10-15 beats of pseudo-VT, patient reported no symptoms he was sitting in the bed denies any complaint. Medications: Reviewed: Yes Vitals/I&O/Wt Last Vital Signs Temp 98.2 F 08/24/21 15:27 Pulse 104 H 08/24/21 15:27 Resp 18 08/24/21 15:27 BP 123/81 08/24/21 15:27 Pulse Ox 92 08/24/21 15:27 08/24/21 08/24/21 08/24/21 06:59 14:59 22:59 Intake Total 240 / 240 Output Total 0 / 0 350 / 350 Balance 0 / 0 240 / 240 -350 / -110 Physical Exam Narrative: EXAM NARRATIVE: Patient was not examined by me today due to Covid Data : 08/24/21 05:55 08/24/21 05:55 Micro: Microbiology 08/18/21 14:40 Blood Culture - Final Blood NO GROWTH AFTER 5 DAYS 08/18/21 14:40 Blood Culture - Final Blood NO GROWTH AFTER 5 DAYS A&P Assessment and plan (1) Heart block: Patient continues to have long pauses during sleep while on CPAP today he has a 6-second pause he has history of Covid could be myocarditis induced, electrolytes are within normal limit he is not on any ilsa angel if he continues to have long pauses may will recommend Micra AV pacemaker we will involve Dr. Olsen . Patient has recurrent multiple pauses while asleep being on CPAP. Recommend Micra AV pacemaker Status: Acute (2) Atypical pneumonia: As per medicine Status: Acute (3) Wide-complex tachycardia: Patient has wide complex tachycardia I personally examined the patient today and interviewed with him. Nurse was standing in the room when it happens patient was not dizzy did not pass out he has multiple episodes of sustained wide-complex tachycardia more than a minute he did not feel anything I can see notching in between most likely it appeared to me this is a pseudoventricular tachycardia/artifact however would like to rule out pause induced torsade ventricular tachycardia due to myocarditis we will therefore ask for echocardiogram to assess LV function, would like to rule out ischemia as well. We will continue to monitor watch him on telemetry for now. Electrolytes and magnesium within normal limit . Most likely it is a pseudoventricular tachycardia patient had normal electrolytes magnesium left ventricular fraction is normal patient does not have any structural heart problem does not appear to be ischemic denies any complaint not dizzy during these episodes of wide-complex tachycardia all in favor of suitability and there is also notching present. 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
--- NOTE | 2021-08-24 18:41 | PC.NURSE ---
Patient had an episode of tachycardia. Strips were printed and put in patients chart. I removed all of the stickers to the Tele and replaced them. I also changed the Tele box to a new one to ensure proper reading. will continue to monitor.
--- NOTE | 2021-08-24 20:19 | PC.NURSE ---
i reported high pulse 102 to nurse
[2021-08-25] VITALS (11 sets, daily range): BP systolic 106–122; BP diastolic 71–81; PULSE 84–118; RESP 16–20; TEMP 36.4–36.9; O2SAT 90–96
[2021-08-25 07:01] LABS: Basophils # 0.1 10^3/uL (0.0-0.1); Basophils % 0.7 %; Eosinophils # 0.1 10^3/uL (0.0-0.8); Eosinophils % 1.5 %; Hematocrit 39.1 % (42.0-52.0); Hemoglobin 12.8 g/dL (11.7-16.6); Lymphocytes # 3.7 10^3/uL (0.8-4.8); Lymphocytes % 44.9 %; Mean Corpuscular HGB Conc 32.7 g/dL (30.0-36.0); Mean Corpuscular Volume 88.7 fl (80-94); Mean Platelet Volume 10.1 fL (7.4-10.4); Monocytes # 0.6 10^3/uL (0.2-0.9); Monocytes % 7.4 %; Neutrophils # 3.64 10^3/uL (1.8-7.7); Neutrophils % 44.6 %; Nucleated Red Blood Cells % 0 %; Platelet Count 218 10^3/cmm (130-400); Red Blood Count 4.41 10^6/uL (4.1-5.3); Red Cell Distribution Width 12.4 % (12.1-15.1); White Blood Count 8.2 10^3/uL (4.0-10.0)
[2021-08-25 07:14] LABS: D Dimer 0.36 ug/mIFEU (0-0.59)
[2021-08-25 07:18] LABS: Alanine Aminotransferase 40 U/L (0-41); Albumin Level 3.5 g/dL (3.5-5.2); Alkaline Phosphatase 69 IU/L (40-130); Anion Gap 10.2 (5-19); Aspartate Amino Transferase 23 U/L (0-40); Blood Urea Nitrogen 14 mg/dL (6-20); Calcium 8.6 mg/dL (8.5-10.5); Carbon Dioxide 27 mmol/L (22-29); Chloride 104 mmol/L (98-107); Creatinine Clr Calc Pharmacy 96.8747; Globulin 2.9 g/dL (1.3-4.6); Glomerular Filtration Rate 77.9 mL/min (90-130); Glucose 94 mg/dL (65-115); Osmolality Calculated 284 mOsm/kg (285-295); Potassium 4.2 mmol/L (3.5-5.1); Sodium 137 mmol/L (136-145); Total Bilirubin 0.3 mg/dL (0.15-1.2); Total Protein 6.4 g/dL (6.6-8.7)
[2021-08-25 07:20] LABS: Chol HDL Ratio 4.21 mg/dL (1.0-5.00); Cholesterol 139 mg/dL (0-200); HDL Cholesterol 33 mg/dL (60-100); LDL Cholesterol Calculated 75 mg/dL (50-129); Triglycerides 154 mg/dL (0-150); VLDL Cholestrol Calculation 31 mg/dL (0-30)
[2021-08-25 07:23] LABS: Estmated Average Glucose 126
[2021-08-25 07:36] LABS: Ferritin 1330 ng/mL (30-400)
[2021-08-25] MEDS: pantoprazole DR 40 mg Tablet PO (09:04)
--- NOTE | 2021-08-25 14:06 | P.PN_ITS ---
Subjective Subjective: Interval history: No acute events overnight. On examination patient lying comfortably in bed on room air. Saturating more than 90%. States he is feeling better. Asking when can go home. Did have one episode of 6- second pause overnight on CPAP. Case discussed with Dr. Torres from cardiology. Plan for discussion with Dr. Olsen for possible Micra pacemaker implantation. Will await further recommendations prior to discharge. Medications: Reviewed: Yes Vitals/I&O/Wt Last Vital Signs Temp 97.6 F 08/25/21 12:00 Pulse 84 08/25/21 12:00 Resp 16 08/25/21 12:00 BP 122/80 08/25/21 12:00 Pulse Ox 94 08/25/21 12:00 08/24/21 08/25/21 08/25/21 22:59 06:59 14:59 Output Total 350 / 350 620 / 970 Balance -350 / -110 -620 / -730 Physical Exam Const: COMMON NORMALS: no acute distress, patient oriented x3 and alert GENERAL APPEARANCE: cooperative ORIENTATION/CONSCIOUSNESS: Yes awake OTHER: More comfortable. HENMT: COMMON NORMALS: oropharynx normal Neck/C-Spine: COMMON NORMALS: no JVD Resp: COMMON NORMALS: normal respiratory effort and clear to auscultation bilaterally AUSCULTATION: clear to auscultation bilaterally Cardio: COMMON NORMALS: no JVD, regular rhythm, S1 normal heart sound present, S2 normal heart sound present and No murmurs present (Cardio) RHYTHM: regular rhythm HEART SOUNDS: S1 normal heart sound present and S2 normal heart sound present GI: COMMON NORMALS: Normal to inspection, nondistended, normoactive bowel sounds present, Soft to palpation and non-tender PALPATION: Yes Soft to palpation Extremity: COMMON NORMALS: no joint enlargement and no pedal edema Neuro: COMMON NORMALS: patient oriented x3 and moves all extremities SENSORIUM/ORIENTATION: Yes alert Skin: COMMON NORMALS: no rashes or lesions noted GENERAL SKIN EXAM: no rashes or lesions noted Data : 08/25/21 06:42 08/25/21 06:42 A&P Assessment and plan (1) Heart block: Wore his CPAP overnight. He was woken up at night with nursing staff coming to check on him. He had a 6-second pause at 02:20 in the morning at the time he was wearing his CPAP. Subsequently additional 2 4.5-second pauses this morning. Then between 8 AM and 803 episodes of what appears to like polymorphic VT as below. Cardiology conducting thorough investigation. TTE ordered. Repeat CBC, CMP, magnesium. With hypoxia, arrhythmia, improvement in renal function will obtain CTA to exclude PE. During the hospital stay episodes of bradycardia with intermittent heart block, pauses, up to 9 seconds long today. Prior to that multiple 4.5-second pauses. Bradycardia, heart block started before he was started on remdesivir, but remdesivir discontinued in case contributing. TSH had been previously checked and normal. Electrolytes normal. Not on ilsa blockers. Sleep apnea was thought to be the culprit, although appears still having pauses while wearing his CPAP. As an aside he has been having issues with getting supplies for his CPAP, and [facility] Appreciate case management help with making sure he gets regular supplies for his CPAP. Requesting CPAP nightly here, although he needs nasal pillows as he cannot tolerate regular mask. Something can be found for him. Appears to have dropped QRSs, with appearance of possible first or second type second-degree block. Difficult to ascertain given some differences in MA interval with appearance in one instance of possibly prolonging MA interval. And others appears to have dropped beats without changes in MA interval. Appreciate cardiology assessment. Status: Acute (2) Abnormal heart rhythm: Separate to the pauses and heart block issue, this morning between 8 AM and 8:03 (08/23) had episodes of what appears to like polymorphic VT on pvc monitor. Some episodes as long as up to couple minutes long. At the time he was awake and alert, nurse a difficult time palpating regular pulse. He was sitting up eating breakfast. Cardiology investigating. TTE ordered. Status: Acute (3) Hypoxia: Improving. Status: Acute (4) Atypical pneumonia: Discontinued remdesivir due to above. Not on steroids due to recovering from acute hepatitis A infection. Continue oxygen support. Continue monitoring in the hospital given bradycardia with significant pauses. Supportive treatment. Oxygenation overall doing okay. On 2 L nasal cannula. Chest x-ray largely unchanged. Slightly diminished lung sounds. Albuterol scheduled and as needed. Severe COVID-19 pneumonia. Oxygenation appears to be showing gradual improvement. Currently down to 2 L nasal cannula. D-dimer elevation, transaminitis would fit also with COVID-19 infection. Currently unable to obtain CT angiogram or complete VQ scan. With D-dimer elevation discussed with him for now empiric anticoagulation until can rule out PE. Renal function improved. Obtain CTA. Status: Acute (5) Acute hepatitis A: Transaminitis resolving. It may be that he is on the tail end of the infection. Unclear source, claims possibly from sewage overflowing in his house. States gets takeout from a few local places. Denies any drug use. States is not sexually active. Follow-up liver function. Hold off any further Bactrim. Avoid NSAIDs. Monitor blood pressures, avoid hypotension. Follow-up coagulation studies. Status: Acute (6) Hypotension: On presentation. Resolved. Continue to hold lisinopril. Received multiple fluid boluses on adamant. Poor oral intake recently, and states continue taking lisinopril, also in the setting of acute kidney injury. Hold further antihypertensives. Per nursing report had his lisinopril and Bactrim pill bottles out today. Questions whether he may have been taking his lisinopril. Taken to be stored by nursing staff. Status: Acute (7) Acute kidney injury: Resolving Appears to responded well to fluid challenge. Producing urine. Continue suppo rtive care. Monitor I&O. Hold lisinopril. Discontinue Bactrim. Avoid NSAIDs. Suspected prerenal, possibly ATN, poor urine output recently, but has put out some urine after fluid challenges in ER. Possible contribution from Bactrim, lisinopril. Reassess renal function. Status: Acute (8) Sleep apnea: Reports both obstructive and central sleep apnea. Has been set up with CPAP, and overall since May since he has been using it has been feeling the best he has been for a long time. Follow-up with pulmonology. [facility] as he has not been able to use it recently due to running out of supplies after moving here from [place]. CM will continue to see if they can assist him with this. Status: Acute Additional A&P Information Plan for the day: Oxygen supplementation keeping saturation over 90%. Continue with pulmonary toilet, Advair, Spiriva. For heart block most likely secondary to possible myocarditis from COVID-19. Continue with telemetry monitoring. Will await cardiology recommendations for possible pacemaker implantation after discussion with Dr. Olsen. Continue CPAP at night. Discussed with case management for need of CPAP supplies as an outpatient. Attestations Medical Necessity Statement*: Requires further hospitalization for management of COVID-19, frequent pauses on telemetry most likely secondary to myocarditis Time Spent in Patient Care: Greater than 35 minutes (>than 50% of time spent in counselling and/or direct pt care on unit) . Coding Level of Care Code Acute Assistant Nurse Manager for [facility] Diagnoses Heart block I45.9 Abnormal heart rhythm I49.9 Hypoxia R09.02 Atypical pneumonia J18.9 Acute hepatitis A B15.9 Hypotension I95.9 Acute kidney injury N17.9 Sleep apnea G47.30
[2021-08-25] MEDS: enoxaparin 40 mg/0.4 mL Syringe SUBCUT (14:35)
--- NOTE | 2021-08-25 19:13 | PM.PN ---
Subjective Subjective: Interval history: Patient continues to have 6-second pause on CPAP no more artifact after changing EKG strip Medications: Reviewed: Yes Vitals/I&O/Wt Last Vital Signs Temp 97.5 F L 08/25/21 15:37 Pulse 108 H 08/25/21 15:37 Resp 20 H 08/25/21 15:37 BP 113/80 08/25/21 15:37 Pulse Ox 93 08/25/21 15:37 08/25/21 08/25/21 08/25/21 06:59 14:59 22:59 Intake Total 490 / 490 Output Total 620 / 970 Balance -620 / -730 490 / 490 Physical Exam Narrative: EXAM NARRATIVE: Patient was not examined by me today due to Covid Data : 08/25/21 06:42 08/25/21 06:42 A&P Assessment and plan (1) Heart block: Patient continues to have long pauses during sleep while on CPAP today he has a 6-second pause he has history of Covid could be myocarditis induced, electrolytes are within normal limit he is not on any ilsa angel if he continues to have long pauses may will recommend Micra AV pacemaker we will involve Dr. Olsen . Patient has recurrent multiple pauses while asleep being on CPAP. Recommend Micra AV pacemaker I spoken to Dr. Olsen today he would like to look into indication for Micra and will let us know in between we will discharge patient on event monitor Status: Acute (2) Atypical pneumonia: As per medicine Status: Acute (3) Wide-complex tachycardia: Patient has wide complex tachycardia I personally examined the patient today and interviewed with him. Nurse was standing in the room when it happens patient was not dizzy did not pass out he has multiple episodes of sustained wide-complex tachycardia more than a minute he did not feel anything I can see notching in between most likely it appeared to me this is a pseudoventricular tachycardia/artifact however would like to rule out pause induced torsade ventricular tachycardia due to myocarditis we will therefore ask for echocardiogram to assess LV function, would like to rule out ischemia as well. We will continue to monitor watch him on telemetry for now. Electrolytes and magnesium within normal limit . Most likely it is a pseudoventricular tachycardia patient had normal electrolytes magnesium left ventricular fraction is normal patient does not have any structural heart problem does not appear to be ischemic denies any complaint not dizzy during these episodes of wide-complex tachycardia all in favor of suitability and there is also notching present. We will continue to monitor, I will change sticky pad of the telemetry No more wide-complex tachycardia it appeared to me that it was secondary to artifact Status: Acute Attestations Medical Necessity Statement*: Patient require continuation hospitalization for above defined care. 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
[2021-08-26] VITALS (8 sets, daily range): BP systolic 96–117; BP diastolic 61–78; PULSE 73–93; RESP 16–18; TEMP 36.1–36.6; O2SAT 92–97
[2021-08-26 08:08] LABS: Ferritin 1196 ng/mL (30-400)
[2021-08-26] MEDS: pantoprazole DR 40 mg Tablet PO (08:28)
[2021-08-26 14:21] LABS: Erythrocyte Sedimentation Rate 34 mm/hr (0-10)
[2021-08-26] MEDS: enoxaparin 40 mg/0.4 mL Syringe SUBCUT (14:59)
--- NOTE | 2021-08-26 18:33 | PM.PN ---
Subjective Subjective: Interval history: Continues to have recurrent more than 5 to 6-second pauses in the night despite of CPAP, no more ventricle tachycardia like artifact noted Medications: Reviewed: Yes Vitals/I&O/Wt Last Vital Signs Temp 97.9 F 08/26/21 16:00 Pulse 83 08/26/21 16:00 Resp 18 08/26/21 16:00 BP 115/78 08/26/21 16:00 Pulse Ox 94 08/26/21 16:00 08/26/21 08/26/21 08/26/21 06:59 14:59 22:59 Intake Total 360 / 360 120 / 480 Output Total 1000 / 1000 Balance -1000 / -510 360 / 360 120 / 480 Physical Exam Narrative: EXAM NARRATIVE: Please note that I have spoken personally to the patient in his room, he has not examined by me though as he was stable and we were trying to make a decision regarding pacemaker Data : 08/25/21 06:42 08/25/21 06:42 A&P Assessment and plan (1) Heart block: Patient continues to have long pauses during sleep while on CPAP today he has a 6-second pause he has history of Covid could be myocarditis induced, electrolytes are within normal limit he is not on any ilsa angel if he continues to have long pauses may will recommend Micra AV pacemaker we will involve Dr. Olsen . Patient has recurrent multiple pauses while asleep being on CPAP. Recommend Micra AV pacemaker I spoken to Dr. Olsen today he would like to look into indication for Micra and will let us know in between we will discharge patient on event monitor I have detailed discussion with the patient since he continues to have recurrent long pauses nonconducted P waves more than 6 seconds we recommend permanent pacemaker placement. We will refer him to Dr. Olsen tomorrow for the plan will advise as per progress of the patient. Patient agrees to it Status: Acute (2) Atypical pneumonia: As per medicine Status: Acute (3) Wide-complex tachycardia: Patient has wide complex tachycardia I personally examined the patient today and interviewed with him. Nurse was standing in the room when it happens patient was not dizzy did not pass out he has multiple episodes of sustained wide-complex tachycardia more than a minute he did not feel anything I can see notching in between most likely it appeared to me this is a pseudoventricular tachycardia/artifact however would like to rule out pause induced torsade ventricular tachycardia due to myocarditis we will therefore ask for echocardiogram to assess LV function, would like to rule out ischemia as well. We will continue to monitor watch him on telemetry for now. Electrolytes and magnesium within normal limit . Most likely it is a pseudoventricular tachycardia patient had normal electrolytes magnesium left ventricular fraction is normal patient does not have any structural heart problem does not appear to be ischemic denies any complaint not dizzy during these episodes of wide-complex tachycardia all in favor of suitability and there is also notching present. 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
--- NOTE | 2021-08-26 19:16 | P.PN_ITS ---
Subjective Subjective: Interval history: Noted to have sinus pauses, no new complaints. Medications: Reviewed: Yes Vitals/I&O/Wt Last Vital Signs Temp 97.9 F 08/26/21 16:00 Pulse 83 08/26/21 16:00 Resp 18 08/26/21 16:00 BP 115/78 08/26/21 16:00 Pulse Ox 94 08/26/21 16:00 08/26/21 08/26/21 08/26/21 06:59 14:59 22:59 Intake Total 360 / 360 120 / 480 Output Total 1000 / 1000 Balance -1000 / -510 360 / 360 120 / 480 Physical Exam Const: COMMON NORMALS: no acute distress, patient oriented x3 and alert GENERAL APPEARANCE: cooperative ORIENTATION/CONSCIOUSNESS: Yes awake OTHER: More comfortable. HENMT: COMMON NORMALS: oropharynx normal Neck/C-Spine: COMMON NORMALS: no JVD Resp: COMMON NORMALS: normal respiratory effort and clear to auscultation bilaterally AUSCULTATION: clear to auscultation bilaterally Cardio: COMMON NORMALS: no JVD, regular rhythm, S1 normal heart sound present, S2 normal heart sound present and No murmurs present (Cardio) RHYTHM: regular rhythm HEART SOUNDS: S1 normal heart sound present and S2 normal heart sound present GI: COMMON NORMALS: Normal to inspection, nondistended, normoactive bowel sounds present, Soft to palpation and non-tender PALPATION: Yes Soft to palpation Extremity: COMMON NORMALS: no joint enlargement and no pedal edema Neuro: COMMON NORMALS: patient oriented x3 and moves all extremities SENSORIUM/ORIENTATION: Yes alert Skin: COMMON NORMALS: no rashes or lesions noted GENERAL SKIN EXAM: no rashes or lesions noted Data : 08/25/21 06:42 08/25/21 06:42 A&P Assessment and plan (1) Heart block: CTS consulted Possible plan for PPM placement. Status: Acute (2) Abnormal heart rhythm: Cardiology on board Telemetry Status: Acute (3) Hypoxia: Improving. Status: Acute (4) Atypical pneumonia: COVID-19 pneumonia No symptoms on RA Afebrile Status: Acute (5) Acute hepatitis A: CMP in am Status: Acute (6) Hypotension: Improved Status: Acute (7) Acute kidney injury: Resolving BMP in am Status: Acute (8) Sleep apnea: No change to management Status: Acute Additional A&P Information Awaiting CTS plan for PPM Attestations Medical Necessity Statement*: Will continue hospitalization for management of sinus pause, cts consult . Time Spent in Patient Care: Greater than 35 minutes (>than 50% of time spent in counselling and/or direct pt care on unit) . Coding Level of Care Code Acute Solution Strategist for Chg Fwd Diagnoses Heart block I45.9 Abnormal heart rhythm I49.9 Hypoxia R09.02 Atypical pneumonia J18.9 Acute hepatitis A B15.9 Hypotension I95.9 Acute kidney injury N17.9 Sleep apnea G47.30
[2021-08-27] VITALS (8 sets, daily range): BP systolic 104–143; BP diastolic 69–98; PULSE 65–97; RESP 16–18; TEMP 36.3–36.8; O2SAT 93–98
[2021-08-27 06:38] LABS: C Reactive Protein 2.8 mg/L (0.0-4.9); D Dimer 0.41 ug/mIFEU (0-0.59); Ferritin 832 ng/mL (30-400)
--- NOTE | 2021-08-27 08:47 | P.DS_ITS ---
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 In ER he is noted with mild hypoxia, initially 88%, requiring 3 L nasal cannula oxygen, not normally needing oxygen without history of lung disease, although is a former smoker. Chest x-ray with noted patchy groundglass infiltrates in both lateral lung zones, most marked on the right, unknown chronicity, could represent COVID-19. He has not been vaccinated. Rapid COVID-19 antigen negative, PCR requested and pending. With noted transaminitis, AST, ALT 55 and 63 respectively. Acute hepatitis panel obtained and is positive for hepatitis A IgM antibody. He denies any drug use. States he is not sexually active. occasionally gets takeout food a few local places. 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 [facility] he has recently had symptoms of upper respiratory infection for which he tried to contact [facility], but was told to proceed to local primary provider and after negative rapid Covid test on assessment was prescribed course of Bactrim which she has been taking up until last day yesterday. In ER he was noted hypotensive, systolic blood pressures initially in the 70s, received 3 L of fluid boluses. He states he has been having very poor oral intake recently, but [facility] was adherent with taking his lisinopril. Upon admisison he was noted to have sinus pause. Patient was seen by cardiology. Recommend Micra AV pacemaker. Not performed during hospitalization. Cleared for discharge by cardiology for close outpatient follow up with CTS. Physical Exam Narrative: EXAM NARRATIVE: Alert/Awake NAD Chest: CTAB CVS; RRR ABD: soft NT Ext : No edema Const: COMMON NORMALS: no acute distress, patient oriented x3 and alert GENERAL APPEARANCE: cooperative and comfortable ORIENTATION/CONSCIOUSNESS: Yes awake, Yes oriented to person, Yes oriented to place and Yes oriented to time OTHER: More comfortable. HENMT: COMMON NORMALS: normocephalic, atraumatic, hearing grossly normal bilaterally, external ears normal, EAC's normal, TM's normal bilaterally, Normal nasal mucous membranes and turbinates present, moist oral mucous membranes and oropharynx normal HEAD & SCALP: normocephalic and atraumatic NOSE: Normal nasal mucous membranes and turbinates present EXTERNAL EAR: Yes external ears normal EXTERNAL AUDITORY CANAL: EAC's normal TYMPANIC MEMBRANE: TM's normal bilaterally Eye: COMMON NORMALS: Equal, round and reactive pupils present, EOMs intact bilaterally, conjunctivae normal and no scleral icterus CONJUNCTIVA: Yes conjunctivae normal PUPIL: Yes Equal, round and reactive pupils present Neck/C-Spine: COMMON NORMALS: full ROM, no lymphadenopathy, supple and no JVD Lymph: LYMPHATIC: no lymphadenopathy noted and no lymphedema noted Resp: COMMON NORMALS: normal respiratory effort, No retractions, No use of accessory muscles and clear to auscultation bilaterally AUSCULTATION: clear to auscultation bilaterally Cardio: COMMON NORMALS: no JVD, regular rate, regular rhythm, S1 normal heart sound present, S2 normal heart sound present and No murmurs present (Cardio) RATE: regular rate RHYTHM: regular rhythm HEART SOUNDS: S1 normal heart sound present and S2 normal heart sound present GI: COMMON NORMALS: Normal to inspection, nondistended, normoactive bowel sounds present, Soft to palpation, non-tender and No hepatosplenomegaly present AUSCULTATION: Yes normoactive bowel sounds PALPATION: Yes Soft to palpation, Yes Tenderness to palpation present (GI) Details: RUQ, No Guarding due to palpation present (GI) and Yes No hepatosplenomegaly present Extremity: COMMON NORMALS: normal to inspection, capillary refill normal, no joint enlargement, no clubbing, cyanosis or edema, no calf tenderness and no pedal edema Neuro: COMMON NORMALS: patient oriented x3 and moves all extremities SENSORIUM/ORIENTATION: Yes alert, Yes oriented to person, Yes oriented to place and Yes oriented to time Skin: COMMON NORMALS: no rashes or lesions noted GENERAL SKIN EXAM: no rashes or lesions noted Discharge Data Data Completed and Pending: Completed Studies During Hospitalization Category Date Time Status CT abdomen pelvis wo con [id number] Stat Cat Scan 08/18/21 15:[address] angio chest PE protcl [id number] Rout ine Cat Scan 08/23/21 11:51 Completed XR chest 1V lazarus ble [id number] Routine Exams 08/22/21 18:18 Completed XR chest 1V lazarus ble [id number] Stat Exams 08/18/21 15:40 Completed CV. echo complete * [id number] Routine Ultrasound 08/23/21 11:19 Completed Vitals: Last Vital Signs Temp 97.4 F L 08/27/21 15:27 Pulse 88 08/27/21 15:27 Resp 16 08/27/21 15:27 BP 143/96 08/27/21 15:27 Pulse Ox 94 08/27/21 15:27 Discharge Plan Discharge Patient Disposition: Home Condition: Stable Prescriptions: New ProAir HFA 90 mcg/actuation HFA aerosol inhaler 1 puff inhalation Q6H PRN (Reason: shortness of breath or wheezing) Qty: 6.7 RF: 0 Discontinued lisinopril 20 mg Tablet 10 mg PO QAM RF: 0 sulfamethoxazole-trimethoprim [Bactrim DS] 800-160 mg Tablet 1 tab PO BID RF: 0 Discharge Orders: Discharge Order (Routine); Ordered 08/27/21 Ordered By: Jordy Hernandez Referrals: Milagros Torres MD [Physician] - 1 week (PLEASE CALL FOR APPOINTMENT) Jimy Cortez DO [Primary Care Provider] - aPblo Olsen MD [Physician] - 1-3 days (or as directed PLEASE CALL FOR APPOINTMENT) Discharge Diet: Cardiac Discharge Activity: Increase activity as tolerated Patient Instructions: Albuterol (By breathing), Opioid Safety Activity Restrictions/Additional Instructions: Return to ER if having respiratory distress, chest pain, lightheadedness, dizziness. Discharge Attestations Time Spent in Discharge Care*: greater than 30 min Specific Discharge Activities: educating and/or supporting family/caregiver, discussing with pcp/other providers, discussing with case resolution specialist/social workers/dc planners, documenting/other paperwork and evaluating patient/reviewing data Status at Discharge: Cognitive status at discharge: cognitively intact , Behavioral status at discharge: cooperative , Functional status at discharge: independent ambulation Overall status at discharge: patient is progressing back to baseline Quality Metrics Clinical Quality Measures During this hospital stay, did patient experience: None Coding Level of Care Code Acute Chg FW DC note Diagnoses Heart block I45.9 Atypical pneumonia J18.9 Wide-complex tachycardia I47.2
[2021-08-27] MEDS: enoxaparin 40 mg/0.4 mL Syringe SUBCUT (13:30)
--- NOTE | 2021-08-27 20:19 | PM.PN ---
Subjective Subjective: Interval history: Patient is walking around without any difficulty. He has falls last night roughly around 5-second Medications: Reviewed: Yes Vitals/I&O/Wt Last Vital Signs Temp 97.4 F L 08/27/21 15:27 Pulse 88 08/27/21 15:27 Resp 16 08/27/21 15:27 BP 143/96 08/27/21 15:27 Pulse Ox 94 08/27/21 15:27 08/27/21 08/27/21 08/27/21 06:59 14:59 22:59 Intake Total 240 / 240 Balance 240 / 240 Physical Exam Narrative: EXAM NARRATIVE: Please note that I have spoken personally to the patient in his room, he has not examined by me though as he was stable Data : 08/25/21 06:42 08/25/21 06:42 A&P Assessment and plan (1) Heart block: Patient continues to have long pauses during sleep while on CPAP today he has a 6-second pause he has history of Covid could be myocarditis induced, electrolytes are within normal limit he is not on any ilsa angel if he continues to have long pauses may will recommend Micra AV pacemaker we will involve Dr. Olsen . Patient has recurrent multiple pauses while asleep being on CPAP. Recommend Micra AV pacemaker I spoken to Dr. Olsen today he would like to look into indication for Micra and will let us know in between we will discharge patient on event monitor I have detailed discussion with the patient since he continues to have recurrent long pauses nonconducted P waves more than 6 seconds we recommend permanent pacemaker placement. We will refer him to Dr. Olsen tomorrow for the plan will advise as per progress of the patient. Patient agrees to it Patient agrees to pacemaker placement Dr. Olsen has been consulted for the management as per Dr. Olsen. Patient has been explained all risk benefits and alternative for the procedure. Patient has been explained he should not be driving walking on high stairs or climbing or going on the roof. Status: Acute (2) Atypical pneumonia: As per medicine Status: Acute (3) Wide-complex tachycardia: Patient has wide complex tachycardia I personally examined the patient today and interviewed with him. Nurse was standing in the room when it happens patient was not dizzy did not pass out he has multiple episodes of sustained wide-complex tachycardia more than a minute he did not feel anything I can see notching in between most likely it appeared to me this is a pseudoventricular tachycardia/artifact however would like to rule out pause induced torsade ventricular tachycardia due to myocarditis we will therefore ask for echocardiogram to assess LV function, would like to rule out ischemia as well. We will continue to monitor watch him on telemetry for now. Electrolytes and magnesium within normal limit . Most likely it is a pseudoventricular tachycardia patient had normal electrolytes magnesium left ventricular fraction is normal patient does not have any structural heart problem does not appear to be ischemic denies any complaint not dizzy during these episodes of wide-complex tachycardia all in favor of suitability and there is also notching present. We will continue to monitor, I will change sticky pad of the telemetry No more wide-complex tachycardia it appeared to me that it was secondary to artifact No more wide-complex tachycardia noted, it was an artifact No more wide-complex tachycardia most likely it is artifact. Status: Acute Attestations Medical Necessity Statement*: Require continuation hospitalization for above defined care. Coding Level of Care Code Established Pt Acute Agri Business Agent for Haley Hedrick Patient Type Established Exam Detailed Medical Decision Making Moderate Complexity Diagnoses Heart block I45.9 Atypical pneumonia J18.9 Wide-complex tachycardia I47.2
== END 2021-08-27 19:39 | disposition home or self-care (01) | DRG 177 ==
LOC: ER 17:50 → ER IP 20:27 → MEDSURG 08-19 14:17
PROVIDERS: Student in an Organized Health Care Education/Training Program; Admitting Provider Internal Medicine; Emergency Provider Family Medicine; PCP Emergency Medicine Emergency Medical Services; Visit Provider Hospitalist
DX: U07.1 COVID-19 (principal); J12.82 Pneumonia due to coronavirus disease 2019; B15.9 Hepatitis A without hepatic coma; I47.2 Ventricular tachycardia; N17.9 Acute kidney failure, unspecified; R09.02 Hypoxemia; I95.9 Hypotension, unspecified; I45.9 Conduction disorder, unspecified; G47.33 Obstructive sleep apnea (adult) (pediatric); G47.31 Primary central sleep apnea; I10 Essential (primary) hypertension; R79.1 Abnormal coagulation profile; R00.1 Bradycardia, unspecified; Z79.2 Long term (current) use of antibiotics; Z87.891 Personal history of nicotine dependence
CPT/HCPCS: 36415; 36416; 36600; 71045; 71275; 74176; 80051; 80053; 80061; 80074; 81003; 82330; 82728; 82805; 82962; 83036; 83540; 83550; 83605; 83735; 84439; 84443; 85025; 85378; 85610; 85651; 85730; 86140; 87040; 87426; 87635; 87806; 93306; 94640; 94664; 96372; 99285; J1650; J7030; J7611; Q9967

== ENCOUNTER → 2021-09-24 11:32 | Outpatient (BNVA) | payer OTHER, SELFPAY | PROVIDERS: PCP Emergency Medicine Emergency Medical Services; Visit Provider Family Medicine | DX: I45.5 Other specified heart block (principal); Z20.822 Contact with and (suspected) exposure to COVID-19 | CPT/HCPCS: 87635 ==

== ENCOUNTER 2021-09-29 10:13 | Day surgery (SDC) | payer OTHER, SELFPAY ==
[2021-09-28 17:25] VITALS: BMI 26.4
[2021-09-29] VITALS (8 sets, daily range): BP systolic 106–151; BP diastolic 73–108; PULSE 72–95; RESP 16–18; TEMP 36.4–36.7; O2SAT 93–97
--- NOTE | 2021-09-29 | SCC_ITS ---
Procedure Done: Micra AV pacemaker implantation 779.1 seconds of fluoroscopic guidance, for a cumulative dose of 461.65 mGy, was provided to Dr. Olsen by the radiology department. C-arm images of the chest were saved for the patient's permanent record. [facility]
--- NOTE | 2021-09-29 10:24 | SC_ITS ---
WS: [id number] C-ARM RADIOGRAPHS CHEST; 3 IMAGES HISTORY: Leadless pacemaker implantation COMPARISON: None available. Intraoperative imaging during pacemaker insertion. Quality of the radiographs is limited. There is a pacemaker inserted over the lower LEFT thorax. SC/C-arm FL for Pacemaker IMPRESSION: Intraoperative imaging during wireless pacemaker insertion.
[2021-09-29] MEDS: sodium chloride 0.9% 1,000 ML 30 ML IV (11:34)
[2021-09-29 11:36] LABS: Basophils # 0.1 10^3/uL (0.0-0.1); Basophils % 0.8 %; Eosinophils # 0.2 10^3/uL (0.0-0.8); Eosinophils % 1.5 %; Hematocrit 43.7 % (42.0-52.0); Hemoglobin 14.8 g/dL (11.7-16.6); Lymphocytes # 3.4 10^3/uL (0.8-4.8); Lymphocytes % 35.1 %; Mean Corpuscular HGB Conc 33.9 g/dL (30.0-36.0); Mean Corpuscular Hemoglobin 29.1 pg (28.0-34.0); Mean Platelet Volume 9.7 fL (7.4-10.4); Monocytes # 0.7 10^3/uL (0.2-0.9); Monocytes % 7.6 %; Neutrophils # 5.29 10^3/uL (1.8-7.7); Neutrophils % 54.1 %; Nucleated Red Blood Cells % 0 %; Platelet Count 216 10^3/cmm (130-400); Red Blood Count 5.08 10^6/uL (4.1-5.3); Red Cell Distribution Width 13.2 % (12.1-15.1); White Blood Count 9.8 10^3/uL (4.0-10.0)
--- NOTE | 2021-09-29 11:48 | P.ANESASSM_ITS ---
Pre-Anesthetic Assessment Pre-Anesthetic Assessment: Height/Weight: Height 1.8 m Weight 86.183 kg Temp Pulse Resp BP Pulse Ox 97.7 F 79 16 117/74 96 09/29/21 11:02 09/29/21 11:42 09/29/21 11:42 09/29/21 11:42 09/29/21 11:42 Preop Diagnosis: AV heart block Proposed Procedure: Operation Date: 09/29/21 12:00 Proposed Procedures p Pacemaker Insertion(Not Applicable) - Pablo Olsen MD Was Beta Andria taken within 24 hours: N/A Was Clonidine taken within 24 hours: N/A Last intake: Intake Last Liquid Date 09/28/21 Last Liquid Time 23:30 Last Solid Date 09/28/21 Last Solid Time 23:30 Social: Social History: No alcohol and No tobacco Packs per day: Former smoker Exam: Pre-Anes Outpt Exam: alert, oriented x 3 and regular rate & rhythm Additional Exam Findings (including area of procedure): Right lung sound diminished Airway: Submandibular: WNL Cervical ROM: WNL MP: 1 Dentition: Chipped and Loose History/ROS: No significant history except as noted Pulmonary: Comments: NELLY COVID Pneumonia July CV/HEM: CV/HEM: HTN Comments: Bradycardia with asymptomatic pauses as long as 8 seconds : Comments: Hx of BRITNEY Hepatic: Hepatic: None reported GI: GI: GERD Metabolic: Metabolic: None reported Musc/skel: Musc/skel: None reported Neuropsych: Neuropsych: None reported Anesthetic Plan: ASA status: 3 Anesthesia: General and MAC Risk of > 500 ml blood loss (7ml/kg in children): No Other Pertinent Information: We discussed risk and benefits of MAC and general anesthesia. Patient understands nature of MAC anesthesia including the spectrum of anesthesia from wide awake to deep sedation. Patient understands that he recall intraoperative events and stimuli including pain but overall should remain comfortable for procedure. Plan MAC with possible conversion to general. Meds/Allergies Current Medications: Current Medications Generic Name Dose Route Start Last Admin Trade Name Freq PRN Reason Stop Dose Admin Sodium Chloride 1,000 mls @ 30 ml s/hr 09/29/21 11:00 09/29/21 11:34 Sodium Chloride 0.9% IV 09/30/21 10:59 30 mls/hr .Q24H YARON Administration PFSH Anesthesia PFSH: Medical History HTN (hypertension) Pneumonia due to COVID-19 virus Sinus pause Surgical History History of back surgery Family History Other Cancer Social History Smoking and tobacco status: former smoker Quit status (tobacco): has quit using tobacco Year quit tobacco: 2012 Former quit date comment: Smoked 30 years 2 pack per day Alcohol intake: current Alcohol intake frequency: holidays/special occasions only Lives independently: Yes Household members: none Marital status: Single Current occupational status: employed Data Anesthesia CBC & Chem 7: 09/29/21 11:20 09/29/21 11:20 Other Labs: Laboratory Results - last 48 hr 09/29/21 11:20 WBC 9.8 RBC 5.08 Hgb 14.8 Hct 43.7 MCV 86.0 MCH 29.1 MCHC 33.9 RDW 13.2 Plt Count 216 MPV 9.7 Neut % (Auto) 54.1 Lymph % (Auto) 35.1 [place] % (Auto) 7.6 Eos % (Auto) 1.5 Baso % (Auto) 0.8 Neut # (Auto) 5.29 Lymph # (Auto) 3.4 [place] # (Auto) 0.7 Eos # (Auto) 0.2 Baso # (Auto) 0.1 Nucleated RBC % (auto) 0 Nucleated RBCs # 0.0 Cardiac Studies: Echocardiogram 08/23/21 Holter Monitor 09/04/21
[2021-09-29 12:00] LABS: Blood Urea Nitrogen 15 mg/dL (6-20); Calcium 8.8 mg/dL (8.5-10.5); Carbon Dioxide 22 mmol/L (22-29); Chloride 105 mmol/L (98-107); Glomerular Filtration Rate 87.9 mL/min (90-130); Glucose 89 mg/dL (65-115); Osmolality Calculated 292 mOsm/kg (285-295); Sodium 141 mmol/L (136-145)
[2021-09-29 12:01] LABS: Anion Gap 18.1 (5-19); Potassium 4.1 mmol/L (3.5-5.1)
--- NOTE | 2021-09-29 12:20 | W.PM.OPSUD ---
Surgery/Procedure H&P Update DATE OF PROCEDURE: September 29, 2021 DATE H&P PERFORMED: 09/04/21 H&P UPDATE INFORMATION: I have reviewed H&P completed within last 30 days, I have examined patient prior to procedure and Changes to prior documentation as noted here CHANGES TO PREVIOUS DOCUMENTATION: This is clinic visit with me on September 04, Mr. Johnson has had an event monitor in place. Several substantial pauses have been noted including the longest being 8.[address] Torres feels that pacemaker implantation should proceed. I discussed with Mr. Johnson about placement of a Micra AV wireless pacemaker. Details and risk of the procedure were carefully and frankly discussed. He is eager to proceed. Appropriate consents have been provided for review and signature. PREOP DIAGNOSIS: AV heart block PLANNED PROCEDURE: Operation Date: 09/29/21 12:00 Proposed Procedures p Pacemaker Insertion(Not Applicable) - Pablo Olsen MD
[2021-09-29] MEDS: lidocaine 1% INJ 20 mL SUBCUT (12:35)
--- NOTE | 2021-09-29 14:46 | P.OP_ITS ---
Operative Report Date of procedure: September 29, 2021 Pre-op Diagnosis: AV heart block Post-op diagnosis: same Procedure Done: Micra AV pacemaker implantation Implants: Micra AV pacemaker Pathology: none sent Surgeon: Pablo Olsen Anesthesia: MAC and Local Complications: None Condition: stable Disposition: same day Brief History: Mr. Johnson is a 56-year-old gentleman recently hospitalized with COVID-19 pneumonia. He developed intermittent AV heart block, mostly occurring at night while sleeping. This has persisted after his apparent complete recovery from his recent COVID-19 infection. Outpatient event recorder as documented long pauses up to 8.6 seconds. Otherwise, he remains in sinus rhythm. Dr. Torres after review, has recommended wireless pacemaker implantation. Rationale for this was carefully discussed with Mr. Johnson. He is agreeable. Appropriate consents have been reviewed and signed. Procedure: Micra AV model number: [id number] Serial number: [id number] RV sensing 7.0 V Impedance 820 ohms Threshold 0.38 mV The patient was taken to the operating room theater carefully position where he underwent IV conscious sedation with anesthesia monitoring. His entire lower abdomen and groin region down to the knees was sterilely prepped and draped. 1% lidocaine was infiltrated in the right groin after and ultrasound visualization of the right femoral vein. The right femoral vein was entered under ultrasound guidance and a guidewire was placed. After confirmation of guidewire placement, an 8 [place] sheath was then positioned under fluoroscopic guidance. Guidewire was then replaced with an Amplatz superstiff 0.035 x 180 cm wire. An 11 scalpel blade was utilized to incise the skin. A [id number]-ravis silk suture was then placed. 8 [place] sheath was then removed and replaced with a 23 [place] delivery sheath. This was positioned at mid right atrial level. Following this, after careful flushing of all components with heparinized saline, and easily at the time of the delivery of the 23 [place] sheath, the patient received 3000 units of heparin intravenously. Next, Micra AV pacemaker its delivery catheter, was passed under fluoroscopic guidance to the end of the 23 [place] sheath. The sheath was then withdrawn back inferior to the right atrium. The Micra AV pacemaker and delivery catheter then positioned under fluoroscopic guidance across the tricuspid valve and then directed to mid septal level. Proximity with the septum was then confirmed utilizing dilute Omnipaque contrast and the series of MINOR and IRMA views. Pacemaker was delivered and then tension testing was performed with cine fluoroscopy performed to assess for misty fixation. Following confirmation of fixation, electrical interrogation was then performed. Initial measurements resulted performing recapture of the pacemaker and repositioning on 2 occasions. Subsequently, acceptable parameters were obtained electrically. Next, after fixation, retaining string was transected and removed followed by removal of the delivery catheter. Re-interrogation again revealed appropriate parameters. Next, the 23 [place] sheath was removed with the [id number]-xp-qceor suture being tied followed by direct pressure being held over the right groin for over 15 minutes and then pressure dressing being applied followed by a s andbag. The patient tolerated procedure well, was awakened from conscious sedation and then transferred to the PACU. Family was counseled at the completion of the procedure.
--- NOTE | 2021-09-29 14:55 | XR_ITS ---
WS: [id number] Exam: XR chest 1V portable [id number] Date/Time of Exam: 09/29/2021 2:55 PM Reason For Exam: POST OP No priors. The lungs are clear and fully expanded. Normal cardiomediastinal silhouette. Regional bony structures are intact. A small battery pack superimposes the left heart. XR/XR chest 1V portable [id number] IMPRESSION: 1. No acute cardiopulmonary finding.
--- NOTE | 2021-09-29 15:59 | ANE.PACU2 ---
Inpatient post-anesthesia follow up: Airway intact: Yes Vital signs: Temperature 97.7 F Pulse Rate 82 Respiratory Rate 16 Blood Pressure 106/73 Pulse Oximetry 95 Oxygen Delivery Me thod Room Air Oxygen Flow Rate Fraction of Inspir ed Oxygen Hydration adequate: Yes Nausea and vomiting: No Pain level: 3 Mental status: Baseline
[2021-09-29 16:08] LABS: Add Urine Microscopic? NO; Charge for UA Resulting for Rev
--- NOTE | 2021-09-29 16:11 | SUR.PHASEII ---
15:20 OBSERVING PATIENT FOR 2 HOURS PER VERBAL ORDER, DOCTOR JENNY.
--- NOTE | 2021-09-29 16:12 | SUR.PHASEII ---
16:10 GOOD RIGHT PEDAL PULSE SENSATION AND ROM OF TOES.
[2021-09-29 17:13] LABS: Bilirubin Urine Neg (Negative); Blood Urine Neg (Negative); Glucose Urine UA Norm (Normal); Ketones Urine 1+ (Negative); Leukocyte Esterase Urine Negative (Negative); Nitrate Urine Negative (Negative); Protein Urine Neg (Negative); Urine Appearance Clear (CLEAR); Urine Color Yellow (Yellow); Urobilinogen Urine Norm (Negative); pH Urine 6.5 (5-7)
[2021-09-29] MEDS: HYDROcodone-acetaminophen 5-325 mg Tablet 1 TAB PO (17:25)
== END 2021-09-29 17:29 | disposition home or self-care (01) ==
PROVIDERS: PCP Emergency Medicine Emergency Medical Services; Visit Provider Thoracic Surgery (Cardiothoracic Vascular Surgery)
PROC: (CPT 33274; principal; 2021-09-29 12:00)
DX: I44.30 Unspecified atrioventricular block (principal); Z86.16 Personal history of COVID-19; Z87.891 Personal history of nicotine dependence; G47.33 Obstructive sleep apnea (adult) (pediatric); K21.9 Gastro-esophageal reflux disease without esophagitis; I10 Essential (primary) hypertension
CPT/HCPCS: 33274; 36415; 71045; 76000; 80048; 81003; 85025; 86850; 86900; 86920; C1786; J0690; J1644; J2250; J2704; J3010; J7030

== ENCOUNTER → 2022-03-04 15:14 | Outpatient (BNVA) | payer OTHER, SELFPAY | PROVIDERS: PCP Emergency Medicine Emergency Medical Services; Visit Provider Internal Medicine Cardiovascular Disease | DX: Z95.0 Presence of cardiac pacemaker (principal); G47.33 Obstructive sleep apnea (adult) (pediatric); Z99.89 Dependence on other enabling machines and devices; B15.9 Hepatitis A without hepatic coma; R03.0 Elevated blood-pressure reading, without diagnosis of hypertension | CPT/HCPCS: 99214 ==

== ENCOUNTER 2022-03-23 15:10 | Emergency (ER) | payer OTHER, SELFPAY ==
[2022-03-23 15:45] VITALS: BP 156/111; PULSE 108; RESP 18; TEMP 36.9; O2SAT 94; BMI 32.8
--- NOTE | 2022-03-23 16:02 | XRR_ITS ---
PROCEDURE INFORMATION: Exam: XR Chest Exam date and time: 03/23/2022 4:16 PM Age: 56 years old Clinical indication: Cough TECHNIQUE: Imaging protocol: XR of the chest. Views: 1 view. COMPARISON: CR XR chest 1V portable [id number] 09/29/2021 3:03 PM FINDINGS: Lungs: Left lower lobe atelectasis versus minimal infiltrate. Pleural spaces: Unremarkable. No pleural effusion. No pneumothorax. Heart/Mediastinum: Unremarkable. No cardiomegaly. Bones/joints: Unremarkable. XR/XR chest 1V portable [id number] IMPRESSION: Left lower lobe atelectasis versus minimal infiltrate.
[2022-03-23 16:07] VITALS: O2SAT 91
[2022-03-23 16:11] VITALS: BP 140/108; PULSE 95; RESP 18; O2SAT 94
--- NOTE | 2022-03-23 16:59 | ED_ITS ---
HPI - COVID General: Chief Complaint: COVID symptoms Stated Complaint: sinus infection Time Seen by Provider: 03/23/22 15:57 Source: patient Mode of arrival: ambulatory Limitations: no limitations Triage information: Has fever, cough or shortness of breath . History of Present Illness: 56-year-old male presents emergency room with complaint sinus congestion fullness drainage for the last several days. Is mild nonproductive cough no fever no myalgias no anosmia. Patient went to his primary care clinic which is the [place] they were concerned he has COVID and referred him here. He reports no diarrhea. He has previously had COVID and that within the last year. He did test positive here at our facility. MD complaint: has COVID symptoms Prior covid testing: no COVID 19 common symptoms: positive fever(s), chills, non-productive cough, dyspnea, body aches, headache(s) and nasal congestion COVID Results: SARS-CoV-2 Antigen (Rapid) Negative (Negative) 08/18/21 15:01 08/18/21 SARS-CoV-2 RNA (RT-PCR) Not detected (NOT DETECTED) 09/24/21 15:12 09/24/21 Nasal/Oral Coronavirus 2019 PCR Detected H 08/18/21 17:14 08/18/21 SARS-CoV-2 (PCR) Not detected (NOT DETECT) 03/23/22 16:14 03/23/22 Coronavirus Type 229E (PCR) Not detected (NOT DETECT) 03/23/22 16:14 03/23/22 Review of Systems Const: Reports: fever(s), chills and body aches ENMT: Reports: nasal congestion Resp: Reports: dyspnea and non-productive cough Neuro: Reports: headache(s) PFSH ED PFSH: Medical History HTN (hypertension) Pacemaker Pneumonia due to COVID-19 virus Sinus pause Surgical History History of back surgery Family History Grandfather CAD (coronary artery disease), Onset Age: 77 Grandmother CAD (coronary artery disease) Dementia Father CAD (coronary artery disease), Onset Age: 70 quadruple bypass Mother Cancer Family/Other Cancer Chronic kidney disease (CKD) CAD (coronary artery disease) Denies family history of Diabetes Clotting disorder Suicide Anesthesia complication Bleeding disorder Lung disease Stroke Social History Smoking and tobacco status: former smoker Quit status (tobacco): has quit using tobacco Year quit tobacco: 2012 Former quit date comment: Smoked 30 years 2 pack per day Alcohol intake: current Alcohol intake frequency: holidays/special occasions only Lives independently: Yes Household members: none Marital status: Single Current occupational status: employed Physical Exam Const: COMMON NORMALS: no acute distress GENERAL APPEARANCE: cooperative and comfortable ORIENTATION/CONSCIOUSNESS: Yes awake, Yes oriented to person, Yes oriented to place and Yes oriented to time HENMT: COMMON NORMALS: normocephalic, atraumatic, hearing grossly normal bilaterally, external ears normal, EAC's normal, TM's normal bilaterally, Normal nasal mucous membranes and turbinates present, moist oral mucous membranes and oropharynx normal HEAD & SCALP: normocephalic and atraumatic NOSE: Normal nasal mucous membranes and turbinates present EXTERNAL EAR: Yes external ears normal EXTERNAL AUDITORY CANAL: EAC's normal TYMPANIC MEMBRANE: TM's normal bilaterally Neck/C-Spine: COMMON NORMALS: no JVD Resp: COMMON NORMALS: normal respiratory effort, No retractions, No use of accessory muscles and clear to auscultation bilaterally AUSCULTATION: clear to auscultation bilaterally Cardio: COMMON NORMALS: no JVD, regular rate, regular rhythm and No murmurs present (Cardio) RATE: regular rate RHYTHM: regular rhythm GI: COMMON NORMALS: Soft to palpation and No hepatosplenomegaly present AUSCULTATION: Yes normoactive bowel sounds PALPATION: Yes Soft to palpation, No Tenderness to palpation present (GI), No Guarding due to palpation present (GI) and Yes No hepatosplenomegaly present Extremity: COMMON NORMALS: normal to inspection, capillary refill normal, no clubbing, cyanosis or edema, no calf tenderness and no pedal edema Neuro: SENSORIUM/ORIENTATION: Yes oriented to person, Yes oriented to place and Yes oriented to time Skin: COMMON NORMALS: no rashes or lesions noted GENERAL SKIN EXAM: no rashes or lesions noted Course Vital Signs: Vital signs: Vital Signs Temperature 98.5 F 03/23/22 15:45 Pulse Rate 108 H 03/23/22 17:07 Respiratory Rate 18 03/23/22 16:11 Blood Pressure 164/115 03/23/22 17:07 Pulse Oximetry 95 03/23/22 17:07 MDM - COVID Medical Decision Making Low index suspicion for COVID. Chest x-ray questionable pneumonia we will start him on doxycycline. We will contact you with the results of the COVID testing discharge home for now reviewed with the patient. Lab Data Radiology Impressions Chest X-Ray 03/23/22 16:02 IMPRESSION: Left lower lobe atelectasis versus minimal infiltrate. Laboratory Results Coronavirus 229E (PCR) Not detected (NOT DETECT) 03/23/22 16:14 Human Metapneumovir PCR Not detected (NOT DETECT) 03/23/22 18:12 Entero/Rhino (PCR) Detected (NOT DETECT) A 03/23/22 18:12 SARS-CoV-2 (PCR) Not detected (NOT DETECT) 03/23/22 16:14 SARS-CoV-2 Antigen (Rapid) Negative (Negative) 08/18/21 15:01 08/18/21 SARS-CoV-2 RNA (RT-PCR) Not detected (NOT DETECTED) 09/24/21 15:12 09/24/21 Nasal/Oral Coronavirus 2019 PCR Detected H 08/18/21 17:14 08/18/21 SARS-CoV-2 (PCR) Not detected (NOT DETECT) 03/23/22 16:14 03/23/22 Coronavirus Type 229E (PCR) Not detected (NOT DETECT) 03/23/22 16:14 03/23/22 Discharge Plan Discharge Patient Disposition: Home Clinical Impression: Suspected 2019-nCoV infection, Bronchitis Condition: Stable Prescriptions: New doxycycline hyclate 100 mg capsule 100 mg PO BID 7 Days Qty: 14 0RF No Action acetaminophen [Tylenol Extra Strength] 500 mg tablet 500 mg PO Q6H [id number] Discharge Orders: Discharge ED (Routine); Ordered 03/23/22 Ordered By: Haim Espinoza Referrals: Jimy Cortez, [Primary Care Provider] - Discharge Activity: Resume usual activity Patient Instructions: Opioid Safety Activity Restrictions/Additional Instructions: Maintain self quarantine until we call with the results of the coronavirus testing. Return if you have worsening problems. 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
[2022-03-23 17:07] VITALS: BP 164/115; PULSE 108; O2SAT 95
[2022-03-23 18:12] LABS: Human Metapneumovirus Not Detected (NOT DETECT); Human Rhinovirus/Enterovirus Detected (NOT DETECT); Results from Genmark
[2022-03-23 18:12] LABS: Adenovirus Not Detected (NOT DETECT); Chlamydia Pneumoniae Not Detected (NOT DETECT); Coronavirus 229E,HKU1,NL63,OC4 Not Detected (NOT DETECT); Human Metapneumovirus Not Detected (NOT DETECT); Human Rhinovirus/Enterovirus Detected (NOT DETECT); Influenza A Not Detected (NOT DETECT); Influenza A H1 Not Detected (NOT DETECT); Influenza A H1-2009 Not Detected (NOT DETECT); Influenza A H3 Not Detected (NOT DETECT); Influenza B Not Detected (NOT DETECT); Mycoplasma Pneumoniae Not Detected (NOT DETECT); Parainfluenza Virus Type 1 Not Detected (NOT DETECT); Parainfluenza Virus Type 2 Not Detected (NOT DETECT); Parainfluenza Virus Type 3 Not Detected (NOT DETECT); Parainfluenza Virus Type 4 Not Detected (NOT DETECT); Respiratory Syncytial Virus A Not Detected (NOT DETECT); Respiratory Syncytial Virus B Not Detected (NOT DETECT); SARS-COV-2 Not Detected (NOT DETECT)
== END 2022-03-23 17:08 | disposition home or self-care (01) ==
PROVIDERS: Emergency Provider Family Medicine; PCP Emergency Medicine Emergency Medical Services
DX: J40 Bronchitis, not specified as acute or chronic (principal)
CPT/HCPCS: 71045; 87635; 87801; 99283

== ENCOUNTER → 2022-05-27 15:00 | Outpatient (BNVA) | payer OTHER, SELFPAY | PROVIDERS: PCP Emergency Medicine Emergency Medical Services; Visit Provider Surgery | DX: K42.9 Umbilical hernia without obstruction or gangrene (principal); Z12.11 Encounter for screening for malignant neoplasm of colon | CPT/HCPCS: 99203 ==

== ENCOUNTER 2022-08-13 06:49 | Day surgery (SDC) | payer OTHER, SELFPAY ==
[2022-08-10 13:31] VITALS: BMI 31.4
[2022-08-13 07:07] VITALS: BP 93/73; PULSE 119; RESP 18; TEMP 36.3; O2SAT 93
[2022-08-13] MEDS: sodium chloride 0.9% 1,000 ML 30 ML IV ×2 (07:19→08:50)
--- NOTE | 2022-08-13 07:29 | P.HP_ITS ---
Providers/Chief Complaint Primary Care Provider: Jimy Cortez DO Chief Complaint: Colon cancer screening History of Present Illness Fredo Johnson is a 57 year old male here for his first colonoscopy Medications/Allergies Home Medications Medication Instructions Recorded Confirmed Last Taken Type acetaminophen 500 mg tablet 500 mg PO Q6H PRN Pain 03/04/22 08/13/22 08/12/22 History (Tylenol Extra Strength) cholecalciferol (vitamin D3) 25 25 mcg PO DAILY 08/10/22 08/13/22 Unknown History mcg (1,000 unit) capsule (Vitamin D3) diphenhydramine HCl 25 mg capsule 25 mg PO TID PRN allergies 08/10/22 08/13/22 Unknown History (Benadryl) lisinopril 10 mg tablet 10 mg PO DAILY 08/10/22 08/13/22 Unknown History Allergies Allergy/AdvReac Type Severity Reaction Status Date / Time No Known Allergies Allergy Verified 08/13/22 07:07 PFSH Acute PFSH: Medical History (Updated 08/13/22 @ 07:30 by Lewis Mina DO) History of pacemaker HTN (hypertension) Pacemaker Pneumonia due to COVID-19 virus Sinus pause Umbilical hernia Surgical History History of back surgery Family History Grandfather CAD (coronary artery disease), Onset Age: 77 Grandmother CAD (coronary artery disease) Dementia Father CAD (coronary artery disease), Onset Age: 70 quadruple bypass Mother Cancer Family/Other Cancer Chronic kidney disease (CKD) CAD (coronary artery disease) Denies family history of Diabetes Clotting disorder Suicide Anesthesia complication Bleeding disorder Lung disease Stroke Social History Smoking and tobacco status: former smoker Quit status (tobacco): has quit using tobacco Year quit tobacco: 2012 Former quit date comment: Smoked 30 years 2 pack per day Alcohol intake: current Alcohol intake frequency: holidays/special occasions only Lives independently: Yes Household members: none Marital status: Single Current occupational status: employed Vitals/I&O/Wt Last Vital Signs Temp 97.4 F L 08/13/22 07:07 Pulse 119 H 08/13/22 07:07 Resp 18 10/21/22 07:07 BP 93/73 08/13/22 07:07 Pulse Ox 93 08/13/22 07:07 O2 Del Method 08/13/22 07:07 A&P Assessment and plan (1) Colon cancer screening: Plan Colonoscopy Attestations Medical Necessity Statement*: Home Coding Level of Care Code Acute Traffic Engineering Director for Chg Fwd Diagnoses Colon cancer screening Z12.11
--- NOTE | 2022-08-13 07:45 | ANES.PREANE2 ---
Pre-Anesthetic Assessment Height/Weight: Height 1.8 m Weight 102.058 kg Temp Pulse Resp BP Pulse Ox O2 Del Method 97.4 F L 119 H 18 93/73 93 08/13/22 07:07 08/13/22 07:07 08/13/22 07:07 08/13/22 07:07 08/13/22 07:07 08/13/22 07:07 Preop Diagnosis: screening Operation Date: 08/13/22 08:45 Proposed Procedures p Colonoscopy 97230,Z12.11(Not Applicable) - Lewis Mina DO Familial anesthetic complications: none Was Beta Andria taken within 24 hours: N/A Was Clonidine taken within 24 hours: N/A Last intake: Intake Last Liquid Date 08/12/22 Last Liquid Time 23:00 Last Solid Date 08/11/22 Last Solid Time 23:30 Last Intake: 23:00 Social No alcohol and No tobacco Exam alert and oriented x 3 Airway Submandibular: within normal limits Cervical ROM: within normal limits Mallampati: Class III Dentition: full (very poor dentition- reports none feel loose) History/ROS No significant history except as noted Pulmonary Sleep Apnea (cpap) CV/HEM Hypertension PM placed september 2021 for pauses- no issues since placement None reported Hepatic None reported GI Gastroesophageal Reflux Disease (rare) Metabolic None reported Musc/skel None reported Neuropsych None reported Anesthetic Plan ASA status: 3 Anesthesia: Anesthesia Evaluation and MAC Risk of > 500 ml blood loss (7ml/kg in children): No Medications/Allergies Home Medications Medication Instructions Recorded Confirmed Last Taken Type acetaminophen 500 mg tablet 500 mg PO Q6H PRN Pain 03/04/22 08/13/22 08/12/22 History (Tylenol Extra Strength) cholecalciferol (vitamin D3) 25 25 mcg PO DAILY 08/10/22 08/13/22 Unknown History mcg (1,000 unit) capsule (Vitamin D3) diphenhydramine HCl 25 mg capsule 25 mg PO TID PRN allergies 08/10/22 08/13/22 Unknown History (Benadryl) lisinopril 10 mg tablet 10 mg PO DAILY 08/10/22 08/13/22 Unknown History Allergies Allergy/AdvReac Type Severity Reaction Status Date / Time No Known Allergies Allergy Verified 08/13/22 07:07 Current Medications Generic Name Dose Route Start Last Admin Trade Name Freq PRN Reason Stop Dose Admin Sodium Chloride 1,000 mls @ 30 mls/hr 08/13/22 07:00 08/13/22 07:19 Sodium Chloride 0.9% IV 08/14/22 06:59 30 mls/hr .Q24H YARON Administration PFSH Anesthesia Medical History (Updated 08/13/22 @ 07:30 by Lewis Mina DO) History of pacemaker HTN (hypertension) Pacemaker Pneumonia due to COVID-19 virus Sinus pause Umbilical hernia Surgical History History of back surgery Family History Grandfather CAD (coronary artery disease), Onset Age: 77 Grandmother CAD (coronary artery disease) Dementia Father CAD (coronary artery disease), Onset Age: 70 quadruple bypass Mother Cancer Family/Other Cancer Chronic kidney disease (CKD) CAD (coronary artery disease) Denies family history of Diabetes Clotting disorder Suicide Anesthesia complication Bleeding disorder Lung disease Stroke Social History Smoking and tobacco status: former smoker Quit status (tobacco): has quit using tobacco Year quit tobacco: 2012 Former quit date comment: Smoked 30 years 2 pack per day Alcohol intake: current Alcohol intake frequency: holidays/special occasions only Lives independently: Yes Household members: none Marital status: Single Current occupational status: employed Data Anesthesia Cardiac Studies: Echocardiogram 08/23/21 Holter Monitor 09/04/21
[2022-08-13 09:17] VITALS: BP 88/52; PULSE 99; RESP 20; TEMP 36.3; O2SAT 93
[2022-08-13 09:22] VITALS: BP 87/59; PULSE 85; RESP 18; O2SAT 93
[2022-08-13 09:31] VITALS: BP 82/63; PULSE 94; RESP 18; O2SAT 93
[2022-08-13 09:41] VITALS: BP 95/66; PULSE 76; RESP 18; O2SAT 93
[2022-08-13 09:45] VITALS: BP 102/76; PULSE 79; RESP 18; O2SAT 93
--- NOTE | 2022-08-13 14:00 | ANE.PACU2 ---
Inpatient post-anesthesia follow up: Airway intact: Yes Vital signs: Temperature 97.4 F Pulse Rate 79 Respiratory Rate 18 Blood Pressure 102/76 Pulse Oximetry 93 Oxygen Delivery Me thod Room Air Oxygen Flow Rate 4 Fraction of Inspir ed Oxygen Hydration adequate: Yes Nausea and vomiting: No Pain level: 1 Mental status: Baseline
== END 2022-08-13 10:00 | disposition home or self-care (01) ==
PROVIDERS: PCP Emergency Medicine Emergency Medical Services; Visit Provider Surgery
PROC: 0DJD8ZZ Inspection of Lower Intestinal Tract, Via Natural or Artificial Opening Endoscopic (ICD-10-PCS; CPT 45378; principal; 2022-08-13 08:45)
DX: Z12.11 Encounter for screening for malignant neoplasm of colon (principal); Z95.0 Presence of cardiac pacemaker; K57.30 Diverticulosis of large intestine without perforation or abscess without bleeding; D12.8 Benign neoplasm of rectum; D12.2 Benign neoplasm of ascending colon; D12.4 Benign neoplasm of descending colon; D12.5 Benign neoplasm of sigmoid colon; I10 Essential (primary) hypertension; Z86.16 Personal history of COVID-19; Z87.891 Personal history of nicotine dependence; G47.30 Sleep apnea, unspecified; K21.9 Gastro-esophageal reflux disease without esophagitis
CPT/HCPCS: 45385; 88305; J2704; J7030

== ENCOUNTER → 2022-08-31 09:22 | Outpatient (BNVA) | payer OTHER, SELFPAY | PROVIDERS: PCP Emergency Medicine Emergency Medical Services; Visit Provider Surgery | DX: D12.6 Benign neoplasm of colon, unspecified (principal) | CPT/HCPCS: 99212 ==

== ENCOUNTER → 2022-09-08 11:24 | Outpatient (BNVA) | payer OTHER, SELFPAY | PROVIDERS: PCP Emergency Medicine Emergency Medical Services; Visit Provider Internal Medicine Cardiovascular Disease | DX: Z95.0 Presence of cardiac pacemaker (principal); G47.33 Obstructive sleep apnea (adult) (pediatric); I10 Essential (primary) hypertension; Z87.891 Personal history of nicotine dependence | CPT/HCPCS: 99214 ==

== ENCOUNTER → 2022-11-26 08:31 | Outpatient (BNVA) | payer OTHER, SELFPAY | PROVIDERS: PCP Emergency Medicine Emergency Medical Services; Visit Provider Internal Medicine Cardiovascular Disease | DX: Z45.010 Encounter for checking and testing of cardiac pacemaker pulse generator [battery] (principal) | CPT/HCPCS: 93279 ==

== ENCOUNTER → 2023-03-08 11:08 | Outpatient (BNVA) | payer OTHER, SELFPAY | PROVIDERS: PCP Emergency Medicine Emergency Medical Services; Visit Provider Internal Medicine Cardiovascular Disease | DX: Z45.010 Encounter for checking and testing of cardiac pacemaker pulse generator [battery] (principal) | CPT/HCPCS: 93296 ==

== ENCOUNTER → 2023-04-12 14:20 | Outpatient (BNVA) | payer OTHER, SELFPAY | PROVIDERS: PCP Emergency Medicine Emergency Medical Services; Visit Provider Specialist | DX: Z95.0 Presence of cardiac pacemaker (principal); I10 Essential (primary) hypertension; Z87.891 Personal history of nicotine dependence | CPT/HCPCS: 99214 ==

== ENCOUNTER → 2023-10-11 15:13 | Outpatient (BNVA) | payer OTHER, SELFPAY | PROVIDERS: PCP Emergency Medicine Emergency Medical Services; Visit Provider Internal Medicine Cardiovascular Disease | DX: I10 Essential (primary) hypertension (principal); Z95.0 Presence of cardiac pacemaker; G47.33 Obstructive sleep apnea (adult) (pediatric); E78.5 Hyperlipidemia, unspecified; Z87.891 Personal history of nicotine dependence | CPT/HCPCS: 99214 ==

== ENCOUNTER 2024-02-26 19:06 | Emergency (ER) | payer OTHER, SELFPAY ==
--- NOTE | 2024-02-26 19:12 | ECG_ITS ---
[facility] Test Date: 2024-02-26 Pat Name: Fredo Johnson Department: Room: Gender: Male Dispatcher Service: : 1965 Requested By: Clementina Henderson Order Number: [id number] Nataliia MD: Erasmo Salinas M.D. Measurements Intervals [place] Rate: 98 P: 48 TX: 168 QRS: -90 QRSD: 110 T: 50 QT: 348 QTc: 445 Interpretive Statements SINUS RHYTHM PATTERN CONSISTENT WITH PULMONARY DISEASE INCOMPLETE RIGHT BUNDLE BRANCH BLOCK [90+ ms QRS DURATION, TERMINAL R IN V1/V2, 40+ ms S IN I/aVL/V4/V5/V6] LEFT ANTERIOR FASCICULAR BLOCK [QRS AXIS <= -45, QR IN I, RS IN II] No previous ECG available for comparison Electronically Signed On 02-27-2024 10:55:53 CDT by Erasmo Salinas M.D. [id number]
[2024-02-26 19:16] VITALS: BP 139/95; PULSE 92; RESP 18; TEMP 36.6; O2SAT 98; BMI 30.7
--- NOTE | 2024-02-26 19:16 | XRR_ITS ---
PROCEDURE INFORMATION: Exam: XR Chest Exam date and time: 02/26/2024 7:32 PM Age: 58 years old Clinical indication: Chest pressure; Prior surgery; Surgery date: 6+ months; Surgery type: Loop recorder; Patient HX: C/O chest pain TECHNIQUE: Imaging protocol: Radiologic exam of the chest. Views: 1 view. COMPARISON: CR XR chest 1V portable [id number] 03/23/2022 4:16 PM FINDINGS: Lungs: Unremarkable. No consolidation. Pleural spaces: Unremarkable. No pleural effusion. No pneumothorax. Heart/Mediastinum: Unremarkable. No cardiomegaly. Bones/joints: Unremarkable. XR/XR chest 1V portable [id number] IMPRESSION: No acute findings.
--- NOTE | 2024-02-26 19:29 | W.ED.CHESTPA ---
HPI - Chest Pain General: Chief Complaint: Chest Pain Stated Complaint: Upper back pain, Chest pain Time Seen by Provider: 02/26/24 19:12 History of Present Illness: 58-year-old man with a history of hypertension and pacemaker placement who presents the emergency room with chest pain. He says about 6 hours ago he had several brief episodes of sharp left chest pain. Since then he had some pains in his left shoulder. Currently his chest pain-free. No cough. No fevers. No shortness of breath. No altered mental status. Review of Systems Narrative: Constitutional symptoms: Negative except as documented in HPI. Skin symptoms: Negative except as documented in HPI. Eye symptoms: Negative except as documented in HPI. ENMT symptoms: Negative except as documented in HPI. Respiratory symptoms: Negative except as documented in HPI. Cardiovascular symptoms: Negative except as documented in HPI. Gastrointestinal symptoms: Negative except as documented in HPI. Genitourinary symptoms: Negative except as documented in HPI. Musculoskeletal symptoms: Negative except as documented in HPI. Neurologic symptoms: Negative except as documented in HPI. Psychiatric symptoms: Negative except as documented in HPI. Endocrine symptoms: Negative except as documented in HPI. PFSH ED PFSH: Medical History Tubular adenoma of colon Umbilical hernia History of pacemaker Pacemaker Pneumonia due to COVID-19 virus Sinus pause HTN (hypertension) Surgical History Hx of colonoscopy 08/13/22 History of back surgery Family History Grandfather CAD (coronary artery disease), Onset Age: 77 Grandmother CAD (coronary artery disease) Dementia Father CAD (coronary artery disease), Onset Age: 70 quadruple bypass Mother Cancer Family/Other Cancer Chronic kidney disease (CKD) CAD (coronary artery disease) Denies family history of Diabetes Clotting disorder Suicide Anesthesia complication Bleeding disorder Lung disease Stroke Social History Smoking and tobacco/nicotine status: former use of tobacco/nicotine Quit status (tobacco/nicotine): has quit using Year quit tobacco: 2012 Former quit date comment: Smoked 30 years 2 pack per day Alcohol intake: current Alcohol intake frequency: holidays/special occasions only Substance/Drug Use: never Lives independently: Yes Household members: none Marital status: Single Current occupational status: employed Physical Exam Narrative: EXAM NARRATIVE: General: Alert, no acute distress. Skin: Warm, dry. Head: Normocephalic, atraumatic. Neck: Supple, trachea midline. Eye: Extraocular movements are intact. Ears, nose, mouth and throat: mucosa moist. Cardiovascular: Regular, Normal peripheral perfusion. Respiratory: Lungs are clear to auscultation, respirations are non-labored, breath sounds are equal, Symmetrical chest wall expansion. Gastrointestinal: Soft, Nontender, Non distended, Normal bowel sounds. Musculoskeletal: Normal ROM, no deformity. Neurological: Alert and oriented, No focal neurological deficit observed. Psychiatric: Cooperative, appropriate mood & affect. Course Vital Signs: Vital signs: Vital Signs Temperature 97.9 F 02/26/24 19:16 Pulse Rate 92 02/26/24 19:16 Respiratory Rate 18 02/26/24 19:16 Blood Pressure 139/95 02/26/24 19:16 Pulse Oximetry 98 02/26/24 19:16 Oxygen Delivery Me thod Room Air 02/26/24 19:16 MDM - Chest Pain Medical Decision Making Differential diagnosis for patient with chest pain includes but is not limited to and based on the above HPI, review of systems and physical exam: Pneumonia. unstable angina. angina. Acute coronary syndrome / DE. Pulmonary embolism. Costochondritis / musculoskeletal. Pleurisy. Pericarditis. Esophageal spasm. Pancreatis. Cholecystitis. Workup: Lab work, chest X-ray and EKG ordered to evaluate, rule in and rule out above pathologies. Lab Review: Laboratory results were reviewed and interpreted by myself the emergency room physician. White count is 9. Hemoglobin 15. BUN and creatinine and 17 and 1.4. Troponin is negative. Chest x-ray: No acute process. No infiltrate. No pneumothorax. No cardiomegaly. This was reviewed and interpreted by myself the ER physician. EKG: Time 1911 rate 98 normal sinus rhythm, No ST-T changes, no ectopy, normal KS & QRS intervals, This was reviewed and interpreted by myself the ER physician at 1914 I reviewed the patient's medical record. Reexamination: Stable. No increased work of breathing. No altered mental status. No focal motor deficits. He has remained chest pain-free while here. Assessment and plan: Chest pain - Discharged home - Discussed findings and plan with patient. Answered any questions. - All laboratory values were reviewed and interpreted personally by myself, the ER physician - All imaging was reviewed and interpreted personally by myself, the ER physician. - Evaluation and treatment of this problem were appropriate in the emergency setting Lab Data 02/26/24 19:19 02/26/24 19:19 Laboratory Results WBC 9.96 10^3/uL (3.29-11.43) 02/26/24 19:19 RBC 5.26 10^6/uL (3.85-5.65) 02/26/24 19:19 Hgb 15.50 g/dL (11.27-16.99) 02/26/24 19:19 Hct 44.7 % (37-53) 02/26/24 19:19 MCV 85.0 fl (82-101) 02/26/24 19:19 MCH 29.5 pg (27-33) 02/26/24 19:19 MCHC 34.7 g/dL (30-55) 02/26/24 19:19 RDW 12.5 % (12.1-15.1) 02/26/24 19:19 Plt Count 172 10^3/cmm (157-399) 02/26/24 19:19 MPV 9.3 fL (7.4-10.4) 02/26/24 19:19 Neut % (Auto) 51.4 % 02/26/24 19:19 Lymph % (Auto) 40.8 % 02/26/24 19:19 [place] % (Auto) 5.6 % 02/26/24 19:19 Eos % (Auto) 1.2 % 02/26/24 19:19 Baso % (Auto) 0.7 % 02/26/24 19:19 Neut # (Auto) 5.12 10^3/uL (1.8-7.7) 02/26/24 19:19 Lymph # (Auto) 4.1 10^3/uL (0.8-4.8) 02/26/24 19:19 [place] # (Auto) 0.6 10^3/uL (0.2-0.9) 02/26/24 19:19 Eos # (Auto) 0.1 10^3/uL (0.0-0.8) 02/26/24 19:19 Baso # (Auto) 0.1 10^3/uL (0.0-0.1) 02/26/24 19:19 Nucleated RBC % (auto) 0 % 02/26/24 19:19 Nucleated RBCs # 0.0 /100WBC 02/26/24 19:19 Sodium 142 mmol/L (136-145) 02/26/24 19:19 Potassium 3.7 mmol/L (3.5-5.1) 02/26/24 19:19 Chloride 105 mmol/L (98-107) 02/26/24 19:19 Carbon Dioxide 27 mmol/L (22-29) 02/26/24 19:19 Anion Gap 13.7 (5-19) 02/26/24 19:19 BUN 17 mg/dL (6-20) 02/26/24 19:19 Creatinine 1.4 mg/dL (0.7-1.2) H 02/26/24 19:19 GFR Calculation 52.4 mL/min (90-130) L 02/26/24 19:19 Glucose 110 mg/dL (65-115) 02/26/24 19:19 Calculated Osmolality 296 mOsm/kg (285-295) H 02/26/24 19:19 Calcium 8.9 mg/dL (8.5-10.5) 02/26/24 19:19 Total Bilirubin 0.6 mg/dL (0.15-1.2) 02/26/24 19:19 AST 26 U/L (0-40) 02/26/24 19:19 ALT 34 U/L (0-41) 02/26/24 19:19 Alkaline Phosphatase 77 U/L (40-130) 02/26/24 19:19 Troponin T Baseline 8 ng/L (0-15) 02/26/24 19:19 C-Reactive Protein 3.0 mg/L (0.0-4.9) 02/26/24 19:19 Total Protein 7.2 g/dL (6.6-8.7) 02/26/24 19:19 Albumin 4.6 g/dL (3.5-5.2) 02/26/24 19:19 Globulin 2.6 g/dL (1.3-4.6) 02/26/24 19:19 All radiology interpretation(s) finalized by discharge Discharge Plan Discharge Patient Disposition: Home Clinical Impression: Atypical chest pain Condition: Stable Prescriptions: No Action acetaminophen [Tylenol Extra Strength] 500 mg tablet 500 mg PO Q6H PRN (Reason: Pain) tamsulosin [Flomax] 0.4 mg capsule 0.4 mg PO DAILY rosuvastatin [Crestor] 20 mg tablet 20 mg PO DAILY Rx Instructions: 10 mg daily lisinopril 20 mg tablet 20 mg PO DAILY Qty: 90 3RF diphenhydramine HCl [Benadryl] 25 mg Capsule 25 mg PO TID PRN (Reason: allergies) cholecalciferol (vitamin D3) [Vitamin D3] 25 mcg (1,000 unit) Capsule 25 mcg PO DAILY Discharge Orders: Discharge ED (Routine); Ordered 02/26/24 Ordered By: Clementina Meza Referrals: Jimy Cortez, [Primary Care Provider] - (You have been screened and evaluated and felt safe for discharge. Health conditions do change or evolve sometimes and as such it is important that you follow up with your Primary Doctor to be re checked, 3-5 days is a general good time frame for follow up. You are always welcome to return to the ED for re assessment if your symptoms are worsening or you have new concerns) Discharge Diet: Usual diet Discharge Activity: Increase activity as tolerated Patient Instructions: Noncardiac Chest Pain (ED) Coding Level of Care Code ED Tourist Information Officer for Haley Hedrick
[2024-02-26 19:30] LABS: Basophils # 0.1 10^3/uL (0.0-0.1); Basophils % 0.7 %; Eosinophils # 0.1 10^3/uL (0.0-0.8); Eosinophils % 1.2 %; Hematocrit 44.7 % (37-53); Lymphocytes # 4.1 10^3/uL (0.8-4.8); Lymphocytes % 40.8 %; Mean Corpuscular HGB Conc 34.7 g/dL (30-55); Mean Corpuscular Hemoglobin 29.5 pg (27-33); Mean Platelet Volume 9.3 fL (7.4-10.4); Monocytes # 0.6 10^3/uL (0.2-0.9); Monocytes % 5.6 %; Neutrophils # 5.12 10^3/uL (1.8-7.7); Neutrophils % 51.4 %; Nucleated Red Blood Cells % 0 %; Platelet Count 172 10^3/cmm (157-399); Red Blood Count 5.26 10^6/uL (3.85-5.65); Red Cell Distribution Width 12.5 % (12.1-15.1); White Blood Count 9.96 10^3/uL (3.29-11.43)
[2024-02-26 19:51] LABS: Alanine Aminotransferase 34 U/L (0-41); Albumin Level 4.6 g/dL (3.5-5.2); Alkaline Phosphatase 77 U/L (40-130); Anion Gap 13.7 (5-19); Aspartate Amino Transferase 26 U/L (0-40); Blood Urea Nitrogen 17 mg/dL (6-20); Calcium 8.9 mg/dL (8.5-10.5); Carbon Dioxide 27 mmol/L (22-29); Chloride 105 mmol/L (98-107); Creatinine Clr Calc Pharmacy 70.9133; Globulin 2.6 g/dL (1.3-4.6); Glomerular Filtration Rate 52.4 mL/min (90-130); Glucose 110 mg/dL (65-115); Osmolality Calculated 296 mOsm/kg (285-295); Potassium 3.7 mmol/L (3.5-5.1); Sodium 142 mmol/L (136-145); Total Bilirubin 0.6 mg/dL (0.15-1.2); Total Protein 7.2 g/dL (6.6-8.7)
[2024-02-26 19:53] LABS: Troponin(5th) Baseline 8 ng/L (0-15)
[2024-02-26 20:31] VITALS: BP 99/66; PULSE 89; RESP 16; TEMP 36.6; O2SAT 99
== END 2024-02-26 20:32 | disposition home or self-care (01) ==
PROVIDERS: Emergency Provider Emergency Medicine; PCP Emergency Medicine Emergency Medical Services
DX: R07.89 Other chest pain (principal); Z95.0 Presence of cardiac pacemaker; I10 Essential (primary) hypertension; Z87.891 Personal history of nicotine dependence
CPT/HCPCS: 71045; 80053; 84484; 85025; 86140; 93005; 99285

== ENCOUNTER → 2024-04-09 15:51 | Outpatient (BNVA) | payer OTHER, SELFPAY | PROVIDERS: PCP Emergency Medicine Emergency Medical Services; Visit Provider Internal Medicine Cardiovascular Disease | DX: R06.09 Other forms of dyspnea (principal); I10 Essential (primary) hypertension; Z95.0 Presence of cardiac pacemaker; E78.5 Hyperlipidemia, unspecified; G47.33 Obstructive sleep apnea (adult) (pediatric); Z87.891 Personal history of nicotine dependence | CPT/HCPCS: 99214 ==

== ENCOUNTER 2024-06-01 07:46 | Outpatient (CLI) | payer OTHER, SELFPAY ==
--- NOTE | 2024-06-01 | ECG_ITS ---
[facility] Test Date: 2024-06-01 Pat Name: Fredo Johnson Department: Room: Gender: Male [employer] Operator: Marva Kemi : 1965 Requested By: Zamzam Wilde Order Number: [id number] Nataliia MD: Erasmo Salinas M.D. Interpretive Statements NAME OF STUDY: LEXISCAN SESTAMIBI STRESS TEST INDICATION: [Chest Pain, SOB , ] Procedure: At the baseline, the blood pressure was 117/83 mmHg with a heart rate of 60bpm. The electrocardiogram showed sinus rhythm, normal axis with normal ST and T's. The Lexiscan was infused over a period of 20 seconds. A total of 0.4 mg of Lexiscan was infused. The stress phase was continued for a total of 5 minutes. Heart rate was at the end of stress phase was 84 bpm and a blood pressure of 118/86 mmHg. The EKG at the peak infusion revealed normal sinus rhythm with no significant ST-T wave changes. Sestamibi was injected 20 seconds after the Lexiscan infusion. Blood pressure at the end of recovery phase was 119/83 mmHg with a heart rate of 85 bpm. Conclusion: 1. Normal EKG response to Lexiscan infusion 2. No Lexiscan induced chest pain or cardiac arrhythmia. 3. Normal blood pressure and heart rate response. 4. Sestamibi/sestamibi perfusion scan pending; see separate report. Electronically Signed On 06-03-2024 20:10:49 CDT by Erasmo Salinas M.D. [email or web address]
[2024-06-01 08:24] VITALS: BMI 30.9
--- NOTE | 2024-06-01 08:25 | NMCV_ITS ---
NM jg perf SPECT r/s* [id number] Fredo Johnson Age: 58 Gender: M : 1965 Exam Date: 06/01/2024 09:09 Ordering Phys: Zamzam Wilde MD ([email or web address]) Technologist: SONAM Guzman Exam Location: [facility] Indications: CP, SOB STRESS TEST Please see separate stress test report in [facility] for full findings IMAGE PROTOCOL Rest/Stress 1 Lexiscan Day Radiopharmaceutical Dose (mCi) Administration Site Administered by Rest: Tc-99m 10.7 IV SONAM Guzman Sestamibi Stress:Tc-99m 32.9 IV SONAM Guzman Sestamibi Rest: 01-Jun-2024 60 Discovery 630 Stress: 01-Jun-2024 30 Discovery 630 0.4mg Lexiscan. Images obtained in supine and prone position. SPECT RESULTS Technical Quality: Good Raw Data Analysis: Image Corrections: No attenuation or motion correction applied Summed Stress Score: 2 Summed Rest Score: 4 Summed Difference Score: 0 PERFUSION FINDINGS Medium sized area of reduced perfusion is seen in inferior wall that improves on prone imaging. This is consistent with attenuation artifact in the inferior wall. FUNCTIONAL RESULTS (calculated via Gated SPECT) Stress Image LV EF (%): 64 Stress EDV (mL):107 TID: 1.09 Stress ESV (mL):39 FUNCTIONAL FINDINGS: There is normal left ventricular systolic function. IMPRESSIONS 1. Attenuation artifact is seen in inferior wall. No evidence of ischemia 2. LV systolic function is normal Erasmo Salinas MD (Electronically Signed) Final Date: 01 June 2024 14:41 S
[2024-06-01] MEDS: regadenoson 0.4 Mg/5 ml Syringe IVP (09:50)
[2024-06-01 09:58] VITALS: BP 119/83; PULSE 84
== END 2024-06-01 07:47 | disposition home or self-care (01) ==
LOC: CDL 07:46
PROVIDERS: PCP Family Medicine; Visit Provider Internal Medicine Cardiovascular Disease
DX: Z98.61 Coronary angioplasty status (principal); R94.39 Abnormal result of other cardiovascular function study
CPT/HCPCS: 36415; 78452; 93017; 96374; A9500; J2785

== ENCOUNTER → 2024-10-11 15:36 | Outpatient (BNVA) | payer OTHER, SELFPAY | PROVIDERS: PCP Family Medicine; Visit Provider Internal Medicine Cardiovascular Disease | DX: I10 Essential (primary) hypertension (principal); Z95.0 Presence of cardiac pacemaker; E78.5 Hyperlipidemia, unspecified; R06.09 Other forms of dyspnea; Z87.898 Personal history of other specified conditions; Z87.891 Personal history of nicotine dependence | CPT/HCPCS: 99214 ==

== ENCOUNTER → 2025-02-27 11:18 | Outpatient (BNVA) | payer OTHER, SELFPAY | PROVIDERS: PCP Family Medicine; Visit Provider Internal Medicine Cardiovascular Disease | DX: Z45.018 Encounter for adjustment and management of other part of cardiac pacemaker (principal) | CPT/HCPCS: 93296 ==

== ENCOUNTER → 2025-06-05 11:48 | Outpatient (BNVA) | payer OTHER, SELFPAY | PROVIDERS: PCP Family Medicine; Visit Provider Internal Medicine | DX: Z45.018 Encounter for adjustment and management of other part of cardiac pacemaker (principal) | CPT/HCPCS: 93296 ==

== ENCOUNTER → 2025-06-17 12:55 | Outpatient (BNVA) | payer OTHER, SELFPAY | PROVIDERS: PCP Family Medicine; Visit Provider Nurse Practitioner Family | DX: D23.71 Other benign neoplasm of skin of right lower limb, including hip (principal); S20.461A Insect bite (nonvenomous) of right back wall of thorax, initial encounter; X58.XXXA Exposure to other specified factors, initial encounter | CPT/HCPCS: 17000; 17110; 99203 ==

== ENCOUNTER → 2025-09-18 09:11 | Outpatient (BNVA) | payer OTHER, SELFPAY | PROVIDERS: PCP Family Medicine; Visit Provider Internal Medicine Cardiovascular Disease | DX: Z45.018 Encounter for adjustment and management of other part of cardiac pacemaker (principal) | CPT/HCPCS: 93296 ==

== ENCOUNTER → 2025-10-03 15:27 | Outpatient (BNVA) | payer OTHER, SELFPAY | PROVIDERS: PCP Family Medicine; Visit Provider Internal Medicine Cardiovascular Disease | DX: E78.5 Hyperlipidemia, unspecified (principal); I10 Essential (primary) hypertension; Z95.0 Presence of cardiac pacemaker; Z87.891 Personal history of nicotine dependence | CPT/HCPCS: 99214 ==